=== PATIENT | female | born 2000 | race Caucasian/White ===

== ENCOUNTER 2023-01-17 09:54 | Emergency (ER) | payer OTHER ==
--- OUTSIDE RECORDS SUMMARY | 2023-01-17 10:09 | XMS REPORT | Continuity of Care Document ---
:2000 Author Organization [facility] t Address [address] [place] [address] Care Team Providers Name Role Phone Pcp, Patient Does Not Have A Primary Care Physician [phone] QING MORRIS Attending Clinician Unavailable Arturo FLOOR SERVICE WORKER SPRING, Qing Attending Clinician Visit/Fp, [facility] Nurse Attending Clinician Unavailable ABIGAIL TEJADA Attending Clinician Unavailable Mallory DYE, Abigail Garcia Attending Clinician Cherry Zarate RN Attending Clinician Unavailable LISA QUEZADA Attending Clinician Unavailable LISA QUEZADA Attending Clinician Unavailable Thalia Melvin Attending Clinician Shilpa Tripp MD Attending Clinician GILDA HARRIS Attending Clinician Unavailable Nurse, [facility] Adult Urgent Attending Clinician Unavailable Unknown, Attending Attending Clinician Unavailable Gilda Bazan Attending Clinician SHILPA TRIPP Attending Clinician Unavailable Manan Armstrong PA-C Attending Clinician MANAN ARMSTRONG Attending Clinician Unavailable Doctor Unassigned, [place] Attending Clinician Unavailable Paresh Hamm Attending Clinician Unavailable Paresh Hamm Attending Clinician [phone] LONG JUSTICE Attending Clinician Unavailable LONG JUSTICE Attending Clinician Unavailable Pgy1 Attending Clinician Unavailable Ab Joy MD Attending Clinician AB JOY Attending Clinician Unavailable TRACEY FRANCOIS II Attending Clinician Unavailable Dylon iGron MD Attending Clinician Madison Lora MD Attending Clinician Alessandro SANDVOAL MD, Michael James Attending Clinician [phone] Mattie DYE, Gavino Attending Clinician MICHAEL LUGO Attending Clinician Unavailable AMANDA EDUARDO Attending Clinician Unavailable Amanda Valladares Attending Clinician MARIO KENNY Attending Clinician Unavailable Mario Rasheed Attending Clinician KASSY RODRIGUEZ Attending Clinician Unavailable [place] Attending Clinician Betzaida Hernandez RN Attending Clinician Unavailable Pcp, Patient Does Not Have A Attending Clinician [phone] GABRIEL SU Attending Clinician Unavailable Gabriel Su APN Attending Clinician SHILPA BEY Attending Clinician Unavailable Shilpa Bey DO Attending Clinician HEIDI MICHAUD A Attending Clinician Unavailable Addi DYE, Heidi A Attending Clinician Sarahi Farias Attending Clinician Unavailable VARSHA FELICIANO Attending Clinician Unavailable Laron MASON, Jennifer Attending Clinician Varsha Feliciano MD Attending Clinician Michael MASON, Manan Attending Clinician MANAN PAYTON Attending Clinician Unavailable Maggie Feldman Attending Clinician Unavailable ANGEL LUIS LAIRD Attending Clinician Unavailable Halie MILES, Leonel Vargas Attending Clinician Unavailable ANNEL ALVAREZ Attending Clinician Unavailable Kain DYE, Annel F Attending Clinician JUAN RAMOS Attending Clinician Unavailable Dominik Negrete MD Attending Clinician Henry Santoro DO Attending Clinician Kena Meneses Attending Clinician Unavailable Kena Meneses Attending Clinician [phone] GAVINO PHELPS Attending Clinician Unavailable Elida García Attending Clinician Unavailable Elida García Attending Clinician [phone] Only, Pcp Test Attending Clinician Unavailable Miguel García MD Attending Clinician Aleena Garcia PA-C Attending Clinician ALEENA GARCIA Attending Clinician Unavailable Moira Murphy MD Attending Clinician Tresa Boston MD Attending Clinician Nurse, Aramis Pcp [facility] Attending Clinician Unavail able Glendy Gibbons MD Attending Clinician Chasidy MILES, Afia Yi Attending Clinician Unavailable Angel Cortez Attending Clinician Unavailable Mica Dill MD Attending Clinician [phone] Willy Dupree Attending Clinician [phone] KIERSTEN BEAULIEU Attending Clinician Unavailable Devaughn Quezada Attending Clinician Unavailable Devaughn Quezada Attending Clinician [phone] Genet Celis Attending Clinician Unavailable Angel Cortez Attending Clinician [phone] Alix Cadet Attending Clinician Unavailable Kristopher Lazaro Attending Clinician Unavailable MICHAEL BASURTO Attending Clinician Unavailable KRYSTIAN LR Attending Clinician Unavailable AMBERLY KHAN Attending Clinician Unavailable MEREDITH HESS Attending Clinician Unavailable MOIRA MURPHY Attending Clinician Unavailable DARCI PETERSON Attending Clinician Unavailable DARCI PETERSON Attending Clinician Unavailable KELSEA HANCOCK Attending Clinician Unavailable JOAQUÍN DELEON Attending Clinician Unavailable MARIA ALEJANDRA DOUGLAS Attending Clinician Unavailable ENRIKE SAAVEDRA Attending Clinician Unavailable NAIF SHAW Attending Clinician Unavailable LISA QUEZADA Admitting Clinician Unavailable SHILPA TRIPP Admitting Clinician Unavailable LONG JUSTICE Admitting Clinician Unavailable MADISON LORA Admitting Clinician Unavailable Madison Lora MD Admitting Clinician GABRIEL SU Admitting Clinician Unavailable SHILPA BEY Admitting Clinician Unavailable Physician, No Primary or Family Admitting Clinician UnavailANNEL Marie Admitting Clinician Unavailable KIERSTEN BEAULIEU Admitting Clinician Unavailable EMERGENCY ROOM, EMERGENCY Admitting Clinician Unavailable ENRIKE SAAVEDRA Admitting Clinician Unavailable Payers Payer Name Policy Type Policy Number Effective Date Expiration Date S ource [place]ICAID [place] [id number] 2020 00:00:00 [place] [id number] 2020 WOMEN 00:00:00 REPLACED BY [facility] [id number] 2021 CHOICE [place] STAR 00:00:00 SAMMY [id number] 4492-03-21 00:00:00 Problems Condition Condition Condition Status Onset Resolution Last Treating Co mments Source Name Details Category Date Date Treatment Clinician Date Pyelonephr Pyelonephr Disease Active U nivers itis itis 8-18 ity of 00:00: [place] [address] Medical Branch History of History of Disease Active U nivers UTI UTI 8-18 ity of 00:00: [place] [address] Medical Branch Bacteriuri Bacteriuri Disease Active U christie a a 8-18 ity of 00:00: Medical Branch Prediabete Prediabete Disease Active U christie s s 2-14 ity of 00:00: Medical Branch Morbid Morbid Disease Active Univers obesity obesity 3-27 it[place] of [place] mass index 00 Me dical of 50 or of 50 or Branch higher higher Examinatio Examinatio Disease Active Overview : Univers n of n of 3-22 Formattin ity of participan participan 00:00: g of this [place] t in t in 00 note is Medical clinical clinical different [facility] trial-Indo trial-Indo from the inder inder original. Subject has been enrolled in the Pharmacok inetic and Pharmacog enomic Approach to Indometha inder Therapy in study (IRB#[id number]) under Yvan Lambert, and Yovanny myers. Subjects are included if prescribe d indometha inder for PTL or short cervix. This is an observati onal 6-hour PK study. Delivery specimens of cord blood are required if the patient s last dose of indometha inder was less than 48 hrs ago. Contact [email or web address] or [phone] for more informati on. History of History of Disease Active 2015-09 Overview : Univers marijuana marijuana 0-12 Formattin i ty of use use 00:00: g of this note Medical might be Branch different from the original. Stopped 10/2015 Former Former Disease Active 2015-09 Overview: Univer s smoker smoker 0-12 Formattin ity of 00:00: g of this note Medical might be Branch different from the original. Stopped with 05/2016 Psychiatri Psychiatri Disease Active 2015-09 Overview : Univers c c 0-12 Formattin ity of diagnosis diagnosis 00:00: g of this [place] 00 note Medical might be Branch different from the original. Under the care of psychiatr y for OCD, MDD, PTSD, VALERI, panic disorder with agoraphob ia and insomnia. Encourage d to continue visits during due to pt's self discontin uation of Elavil and Prozac; Denies SI/HI on 10/7/16. Rubella Rubella Disease Active 2015-09 Univers non-immune non-immune 0-11 it y of status, status, 00:00: [place] antepartum antepartum 00 Me dical Branch Maternal Maternal Disease Active 2015-09 Unive rs varicella, varicella, 0-11 it y of non-immune [place]-immune [place] Decreased Decreased Disease Active Uni vers range of range of 3-31 ity of motion of motion of 00:[place] interverte interverte 00 Me dical bral discs bral discs Br anch of of cervical cervical spine spine Muscle Muscle Disease Active Univers spasms of spasms of 3-31 ity of head or head or 00:00: [place] neck neck 00 Medical Branch Frequent Frequent Disease Active Unive rs headaches headaches 3-31 ity of 00:00: [place] Medical Branch Pain in Pain in Disease Active Univers lateral lateral 3-31 ity of left upper left upper 00:[place] extremity extremity 00 Medi aicha Branch Radicular Radicular Disease Active Uni vers pain in pain in 3-31 ity of left arm left arm 00:00: [place] 00 Medical Branch PID PID Disease Active Univers (pelvic (pelvic ity of inflammato inflammato [place] ry [place] Medical disease) disease) Branch Allergies, Adverse Reactions, Alerts Allergy Allergy Status Severity Reaction(s) Onset Inactive Treating Comm ents Source Name Type Date Date Clinician No Known DA Active U 2020-09 [facility] 2[facility]23 [place] [facility] NO KNOWN Drug Active Univers ALLERGIE Class ity of S [place] [facility] Family History Family Member Diagnosis Comments Start Date Stop Date Source Father Heart disease 2013-02-14 2013-02-14 [facility] Mother Family history of 2013-02-14 2013-02-14 [facility] manic-depressive 00:00:00 00:00:00 and [facility] Social History Social Habit Start Date Stop Date Quantity Comments Source Health-related 2022-09-10 [facility] Behavior 00:00:00 and Well[facility] History of 2022-09-07 Heavy cigarette [facility] ealt tobacco use 00:00:00 smoker (20-39 and [facility] cigs/day) History [facility] University o f Alcohol Frequency [place] M edical Branch History [facility] University o f Alcohol Std [place] Medical Drinks Branch History [facility] o f Alcohol Binge [place] Medic al Branch Alcohol intake [facility] Sex Assigned At Female [facility] ealt and Wellness Exposure to 2022-12-11 2022-12-21 Not sure University SARS-CoV-2 00:00:00 09:04:00 [facility] [place] [facility] (event) Branch Tobacco use and 2022-05-05 2022-05-05 Smokeless tobacco Un iversity of exposure 00:00:00 00:00:00 non-user [facility] [place] [facility] Alcohol Comment 2020-07-31 2020-07-31 socialy Universit y of 00:00:00 00:00:00 [facility] [place] [facility] Smoking Status Start Date Stop Date Source Unknown if ever smoked [facility] ealt and Wellness Smokes tobacco daily 2022-05-05 00:00:00 Univers ity of [facility] [place] [facility] Medications Ordered Filled Start Stop Current Ordering Indication Dosage Frequency Signature Comments Components Source Medication Medication Date Date Medication? Clinician (SIG) Name Name iopamidol 2022- No [id number] 80mL 80 mL, U nivers (ISOVUE 12-07 Intravenou ity o f 370-500 mL) 16:00: 14:59 s, ONCE, 1 [place] injection 00 :00 dose, On Medica l 80 mL Wed Branch 12/07/22 at 1100, Routine methocarbam 2022- No 1000mg 1,000 mg, Univers oL 12-07 Oral, ity of (ROBAXIN) 03:15: 03:07 ONCE, 1 [place] tablet 00 :00 dose, On Medical 1,000 mg Tue Branch 12/06/22 at 2215, Routine ibuprofen 2022- No 800mg 800 mg, Uni vers (IBU) 12-07 Oral, ity of tablet 800 02:15: 03:07 ONCE, 1 [place] as mg 00 :00 dose, On Medical Tue Branch 12/06/22 at 2115, SAMMY ibuprofen Yes [id number] 600mg Take 1 U nivers 600 mg 12-07 tablet by ity of tablet 00:00: mouth [place] 00 every 6 Medical (six) Branch hours as needed for Pain (scale 4-6) for up to 12 doses. cyclobenzap 2023-0 Yes [id number] 10mg Take 1 Univers rine 10 mg 3-22 tablet by ity of tablet 00:00: mouth in [place] 00 the Medical morning Branch and 1 tablet at noon and 1 tablet in the evening. ibuprofen 2023-0 Yes [id number] 600mg Take 1 U nivers 600 mg 3-22 tablet by ity of tablet 00:00: mouth [place] 00 every 6 Medical (six) Branch hours as needed for Pain (scale 4-6) for up to 12 doses. cyclobenzap 2023-0 Yes [id number] 10mg Take 1 Univers rine 10 mg 3-22 tablet by ity of tablet 00:00: mouth in [place] 00 the Medical morning Branch and 1 tablet at noon and 1 tablet in the evening. ibuprofen 2023-0 Yes [id number] 600mg Take 1 U nivers 600 mg 3-22 tablet by ity of tablet 00:00: mouth [place] 00 every 6 Medical (six) Branch hours as needed for Pain (scale 4-6) for up to 12 doses. cyclobenzap 2023-0 Yes [id number] 10mg Take 1 Univers rine 10 mg 3-22 tablet by ity of tablet 00:00: mouth in [place] 00 the Medical morning Branch and 1 tablet at noon and 1 tablet in the evening. ibuprofen 2023-0 Yes [id number] 600mg Take 1 U nivers 600 mg 3-22 tablet by ity of tablet 00:00: mouth [place] 00 every 6 Medical (six) Branch hours as needed for Pain (scale 4-6) for up to 12 doses. cyclobenzap 2023-0 Yes [id number] 10mg Take 1 Univers rine 10 mg 3-22 tablet by ity of tablet 00:00: mouth in [place] 00 the Medical morning Branch and 1 tablet at noon and 1 tablet in the evening. ibuprofen 2023-0 Yes [id number] 600mg Take 1 U nivers 600 mg 3-22 tablet by ity of tablet 00:00: mouth [place] 00 every 6 Medical (six) Branch hours as needed for Pain (scale 4-6) for up to 12 doses. cyclobenzap 2023-0 Yes [id number] 10mg Take 1 Univers rine 10 mg 3-22 tablet by ity of tablet 00:00: mouth in [place] 00 the Medical morning Branch and 1 tablet at noon and 1 tablet in the evening. ibuprofen Yes [id number] 600mg Take 1 U nivers 600 mg 3-22 tablet by ity of tablet 00:00: mouth [place] 00 every 6 Medical (six) Branch hours as needed for Pain (scale 4-6) for up to 12 doses. cyclobenzap Yes [id number] 10mg Take 1 Univers rine 10 mg - tablet by ity of tablet 00:00: mouth in [place] [address] [facility] Branch and 1 tablet at noon and 1 tablet in the evening. iopamidol 2022- No [id number] 80mL 80 mL, U nivers (ISOVUE 12-04 Intravenou ity o f 370-500 mL) 05:00: 05:00 s, ONCE, 1 [place] injection 00 :00 dose, On Medica l 80 mL [place] Branch 12/04/22 at 0000, Routine amoxicillin 2022- Yes [id number] 875mg Take 1 Univers 875 mg 11-18 tablet by ity of tablet 00:00: 05:59 mouth in [place] 00 :[address] [facility] and 1 tablet in the evening. Do all this for 7 days. amoxicillin 2022- Yes [id number] 875mg Take 1 Univers 875 mg 11-18 tablet by ity of tablet 00:00: 05:59 mouth in [place] 00 :[address] [facility] and 1 tablet in the evening. Do all this for 7 days. amoxicillin 2022- Yes [id number] 875mg Take 1 Univers 875 mg 11-18 tablet by ity of tablet 00:00: 05:59 mouth in [place] 00 :[address] [facility] and 1 tablet in the evening. Do all this for 7 days. traMADoL 2021-09- No 50mg 50 mg, Univer s (ULTRAM) 09-20 Oral, ity of tablet 50 14:30: 13:42 ONCE, 1 [place] mg 00 :00 dose, On Medical Sand[place] Branch 07/21/22 at 0930, SAMMY aspirin 2021-09 Yes 324mg 324 mg, Univer s chewable 1-03 Oral, ity of tablet 324 14:00: DAILY, [place] mg 00 First dose Medical on Sandi Branch 07/21/22 at 0900, Until Discontinu ed, Routine ketorolac 2021-09 30mg 30 mg, Unive rs (TORADOL) 09-20 Slow IV ity of injection 13:15: 12:25 Push, [place] 30 mg 00 :00 ONCE, 1 Medical dose, On Branch Sandi 07/21/22 at 0815, Routine traMADoL 50 2021-09 Yes [id number] 50mg Take 1 Univ ers mg tablet 1-03 tablet by ity o f 00:00: mouth [place] 00 every 6 Medical (six) Branch hours as needed for Pain (scale 4-6) for up to 10 doses. Indication s: acute pain traMADoL 50 2021-09 Yes [id number] 50mg Take 1 Univ ers mg tablet 1-03 tablet by ity o f 00:00: mouth [place] 00 every 6 Medical (six) Branch hours as needed for Pain (scale 4-6) for up to 10 doses. Indication s: acute pain traMADoL 50 2021-09 Yes [id number] 50mg Take 1 Univ ers mg tablet 1-03 tablet by ity o f 00:00: mouth [place] 00 every 6 Medical (six) Branch hours as needed for Pain (scale 4-6) for up to 10 doses. Indication s: acute pain traMADoL 50 2021-09 Yes [id number] 50mg Take 1 Univ ers mg tablet 1-03 tablet by ity o f 00:00: mouth [place] 00 every 6 Medical (six) Branch hours as needed for Pain (scale 4-6) for up to 10 doses. Indication s: acute pain traMADoL 50 2021-09 Yes [id number] 50mg Take 1 Univ ers mg tablet 1-03 tablet by ity o f 00:00: mouth [place] 00 every 6 Medical (six) Branch hours as needed for Pain (scale 4-6) for up to 10 doses. Indication s: acute pain traMADoL 50 2021-09 Yes [id number] 50mg Take 1 Univ ers mg tablet 1-03 tablet by ity o f 00:00: mouth [place] 00 every 6 Medical (six) Branch hours as needed for Pain (scale 4-6) for up to 10 doses. Indication s: acute pain traMADoL 50 2021-09 Yes [id number] 50mg Take 1 Univ ers mg tablet 1-03 tablet by ity o f 00:00: mouth [place] 00 every 6 Medical (six) Branch hours as needed for Pain (scale 4-6) for up to 10 doses. Indication s: acute pain traMADoL 50 2021-09 Yes [id number] 50mg Take 1 Univ ers mg tablet 1-03 tablet by ity o f 00:00: mouth [place] 00 every 6 Medical (six) Branch hours as needed for Pain (scale 4-6) for up to 10 doses. Indication s: acute pain traMADoL 50 2021-09 Yes [id number] 50mg Take 1 Univ ers mg tablet 1-03 tablet by ity o f 00:00: mouth [place] 00 every 6 Medical (six) Branch hours as needed for Pain (scale 4-6) for up to 10 doses. Indication s: acute pain traMADoL 50 2021-09 Yes [id number] 50mg Take 1 Univ ers mg tablet 1-03 tablet by ity o f 00:00: mouth [place] 00 every 6 Medical (six) Branch hours as needed for Pain (scale 4-6) for up to 10 doses. Indication s: acute pain traMADoL 50 2021-09 Yes [id number] 50mg Take 1 Univ ers mg tablet 1-03 tablet by ity o f 00:00: mouth [place] 00 every 6 Medical (six) Branch hours as needed for Pain (scale 4-6) for up to 10 doses. Indication s: acute pain traMADoL 50 2021-09 Yes [id number] 50mg Take 1 Univ ers mg tablet 1-03 tablet by ity o f 00:00: mouth [place] 00 every 6 Medical (six) Branch hours as needed for Pain (scale 4-6) for up to 10 doses. Indication s: acute pain traMADoL 50 2021-09 Yes [id number] 50mg Take 1 Univ ers mg tablet 1-03 tablet by ity o f 00:00: mouth [place] 00 every 6 Medical (six) Branch hours as needed for Pain (scale 4-6) for up to 10 doses. Indication s: acute pain ciprofloxac Yes [id number] 500mg Take 1 Univers in HCl 500 8-20 tablet by ity of mg tablet 00:00: mouth [place] 00 the Medical morning Branch and 1 tablet in the evening. ondansetron Yes [id number] 4mg Take 1 Univers 4 mg tablet 8-20 tablet by ity of 00:00: mouth [place] 00 every 8 Medical (eight) Branch hours as needed for Nausea and Vomiting (N/V). ciprofloxac 2022-0 Yes [id number] 500mg Take 1 Univers in HCl 500 8-20 tablet by ity of mg tablet 00:00: mouth [place] 00 the Medical morning Branch and 1 tablet in the evening. ondansetron 2022-0 Yes [id number] 4mg Take 1 Univers 4 mg tablet 8-20 tablet by ity of 00:00: mouth [place] 00 every 8 Medical (eight) Branch hours as needed for Nausea and Vomiting (N/V). ciprofloxac 2022-0 Yes [id number] 500mg Take 1 Univers in HCl 500 8-20 tablet by ity of mg tablet 00:00: mouth [place] 00 the Medical morning Branch and 1 tablet in the evening. ondansetron 2022-0 Yes [id number] 4mg Take 1 Univers 4 mg tablet 8-20 tablet by ity of 00:00: mouth [place] 00 every 8 Medical (eight) Branch hours as needed for Nausea and Vomiting (N/V). ciprofloxac 2022-0 Yes [id number] 500mg Take 1 Univers in HCl 500 8-20 tablet by ity of mg tablet 00:00: mouth [place] 00 the Medical morning Branch and 1 tablet in the evening. ondansetron 2022-0 Yes [id number] 4mg Take 1 Univers 4 mg tablet 8-20 tablet by ity of 00:00: mouth [place] 00 every 8 Medical (eight) Branch hours as needed for Nausea and Vomiting (N/V). ciprofloxac 2022-0 Yes [id number] 500mg Take 1 Univers in HCl 500 8-20 tablet by ity of mg tablet 00:00: mouth [place] 00 the Medical morning Branch and 1 tablet in the evening. ondansetron 2022-0 Yes [id number] 4mg Take 1 Univers 4 mg tablet 8-20 tablet by ity of 00:00: mouth [place] 00 every 8 Medical (eight) Branch hours as needed for Nausea and Vomiting (N/V). ciprofloxac 2022-0 Yes [id number] 500mg Take 1 Univers in HCl 500 8-20 tablet by ity of mg tablet 00:00: mouth [place] 00 the Medical morning Branch and 1 tablet in the evening. ondansetron 2022-0 Yes [id number] 4mg Take 1 Univers 4 mg tablet 8-20 tablet by ity of 00:00: mouth [place] 00 every 8 Medical (eight) Branch hours as needed for Nausea and Vomiting (N/V). ciprofloxac 2022-0 Yes [id number] 500mg Take 1 Univers in HCl 500 8-20 tablet by ity of mg tablet 00:00: mouth [place] 00 the Medical morning Branch and 1 tablet in the evening. ondansetron 2022-0 Yes [id number] 4mg Take 1 Univers 4 mg tablet 8-20 tablet by ity of 00:00: mouth [place] 00 every 8 Medical (eight) Branch hours as needed for Nausea and Vomiting (N/V). ciprofloxac 2022-0 Yes [id number] 500mg Take 1 Univers in HCl 500 8-20 tablet by ity of mg tablet 00:00: mouth [place] 00 the Medical morning Branch and 1 tablet in the evening. ondansetron 2022-0 Yes [id number] 4mg Take 1 Univers 4 mg tablet 8-20 tablet by ity of 00:00: mouth [place] 00 every 8 Medical (eight) Branch hours as needed for Nausea and Vomiting (N/V). ciprofloxac 2022-0 Yes [id number] 500mg Take 1 Univers in HCl 500 8-20 tablet by ity of mg tablet 00:00: mouth [place] 00 the Medical morning Branch and 1 tablet in the evening. ondansetron 2022-0 Yes [id number] 4mg Take 1 Univers 4 mg tablet 8-20 tablet by ity of 00:00: mouth [place] 00 every 8 Medical (eight) Branch hours as needed for Nausea and Vomiting (N/V). ciprofloxac 2022-0 Yes [id number] 500mg Take 1 Univers in HCl 500 8-20 tablet by ity of mg tablet 00:00: mouth [place] 00 the Medical morning Branch and 1 tablet in the evening. ondansetron 2022-0 Yes [id number] 4mg Take 1 Univers 4 mg tablet 8-20 tablet by ity of 00:00: mouth [place] 00 every 8 Medical (eight) Branch hours as needed for Nausea and Vomiting (N/V). ciprofloxac 2022-0 Yes [id number] 500mg Take 1 Univers in HCl 500 8-20 tablet by ity of mg tablet 00:00: mouth [place] 00 the Medical morning Branch and 1 tablet in the evening. ondansetron 2022-0 Yes [id number] 4mg Take 1 Univers 4 mg tablet 8-20 tablet by ity of 00:00: mouth [place] 00 every 8 Medical (eight) Branch hours as needed for Nausea and Vomiting (N/V). ciprofloxac 2022-0 Yes [id number] 500mg Take 1 Univers in HCl 500 8-20 tablet by ity of mg tablet 00:00: mouth [place] 00 the Medical morning Branch and 1 tablet in the evening. ondansetron 2022-0 Yes [id number] 4mg Take 1 Univers 4 mg tablet 8-20 tablet by ity of 00:00: mouth [place] 00 every 8 Medical (eight) Branch hours as needed for Nausea and Vomiting (N/V). ciprofloxac 2022-0 Yes [id number] 500mg Take 1 Univers in HCl 500 8-20 tablet by ity of mg tablet 00:00: mouth [place] 00 the Medical morning Branch and 1 tablet in the evening. ondansetron 2022-0 Yes [id number] 4mg Take 1 Univers 4 mg tablet 8-20 tablet by ity of 00:00: mouth [place] 00 every 8 Medical (eight) Branch hours as needed for Nausea and Vomiting (N/V). ciprofloxac 2022-0 Yes [id number] 500mg Take 1 Univers in HCl 500 8-20 tablet by ity of mg tablet 00:00: mouth [place] 00 the Medical morning Branch and 1 tablet in the evening. ondansetron 2022-0 Yes [id number] 4mg Take 1 Univers 4 mg tablet 8-20 tablet by ity of 00:00: mouth [place] 00 every 8 Medical (eight) Branch hours as needed for Nausea and Vomiting (N/V). ciprofloxac 2022-0 Yes [id number] 500mg Take 1 Univers in HCl 500 8-20 tablet by ity of mg tablet 00:00: mouth [place] 00 the Medical morning Branch and 1 tablet in the evening. ondansetron 2022-0 Yes [id number] 4mg Take 1 Univers 4 mg tablet 8-20 tablet by ity of 00:00: mouth [place] 00 every 8 Medical (eight) Branch hours as needed for Nausea and Vomiting (N/V). ciprofloxac 2022-0 Yes [id number] 500mg Take 1 Univers in HCl 500 8-20 tablet by ity of mg tablet 00:00: mouth [place] 00 the Medical morning Branch and 1 tablet in the evening. ondansetron 2022-0 Yes [id number] 4mg Take 1 Univers 4 mg tablet 8-20 tablet by ity of 00:00: mouth [place] 00 every 8 Medical (eight) Branch hours as needed for Nausea and Vomiting (N/V). ciprofloxac 2022-0 Yes [id number] 500mg Take 1 Univers in HCl 500 8-20 tablet by [facility] mg tablet 00:00: mouth [place] 00 the Medical morning Branch and 1 tablet in the evening. ondansetron 2022-0 Yes [id number] 4mg Take 1 [facility] 4 mg tablet 8-20 tablet by [facility] of 00:00: mouth [place] 00 every 8 Medical (eight) Branch hours as needed for Nausea and Vomiting (N/V). methocarbam 2022-0 Yes [id number] 500mg Take 1 [facility] oL 500 mg 7-18 tablet by [facility] o f tablet 00:00: mouth (four) Medical times Branch daily as needed for Pain (scale 1-3). ibuprofen 2022-0 Yes [id number] 600mg Take 1 [facility] 600 mg 7-18 tablet by [facility] tablet 00:00: mouth [place] 00 every 6 Medical (six) Branch hours as needed for Pain (scale 1-3). methocarbam 2022-0 Yes [id number] 500mg Take 1 [facility] oL 500 mg 7-18 tablet by [facility] o f tablet 00:00: mouth 00 (four) Medical times Branch daily as needed for Pain (scale 1-3). ibuprofen 2022-0 Yes [id number] 600mg Take 1 [facility] 600 mg 7-18 tablet by [facility] tablet 00:00: mouth [place] 00 every 6 Medical (six) Branch hours as needed for Pain (scale 1-3). methocarbam 2022-0 Yes [id number] 500mg Take 1 [facility] oL 500 mg 7-18 tablet by [facility] o f tablet 00:00: mouth 4 00 (four) Medical times Branch daily as needed for Pain (scale 1-3). ibuprofen 2022-0 Yes [id number] 600mg Take 1 [facility] 600 mg 7-18 tablet by [facility] tablet 00:00: mouth [place] 00 every 6 Medical (six) Branch hours as needed for Pain (scale 1-3). methocarbam 2022-0 Yes [id number] 500mg Take 1 [facility] oL 500 mg 7-18 tablet by [facility] o f tablet 00:00: mouth (four) Medical times Branch daily as needed for Pain (scale 1-3). ibuprofen 2022-0 Yes [id number] 600mg Take 1 [facility] 600 mg 7-18 tablet by [facility] tablet 00:00: mouth [place] 00 every 6 Medical (six) Branch hours as needed for Pain (scale 1-3). methocarbam 2022-0 Yes [id number] 500mg Take 1 [facility] oL 500 mg 7-18 tablet by [facility] o f tablet 00:00: mouth (four) Medical times Branch daily as needed for Pain (scale 1-3). ibuprofen 2022-0 Yes [id number] 600mg Take 1 [facility] 600 mg 7-18 tablet by [facility] tablet 00:00: mouth [place] 00 every 6 Medical (six) Branch hours as needed for Pain (scale 1-3). methocarbam 2022-0 Yes [id number] 500mg Take 1 [facility] oL 500 mg 7-18 tablet by [facility] o f tablet 00:00: mouth (four) Medical times Branch daily as needed for Pain (scale 1-3). ibuprofen 2022-0 Yes [id number] 600mg Take 1 [facility] 600 mg 7-18 tablet by [facility] tablet 00:00: mouth [place] 00 every 6 Medical (six) Branch hours as needed for Pain (scale 1-3). methocarbam 2022-0 Yes [id number] 500mg Take 1 [facility] oL 500 mg 7-18 tablet by [facility] o f tablet 00:00: mouth (four) Medical times Branch daily as needed for Pain (scale 1-3). ibuprofen 2022-0 Yes [id number] 600mg Take 1 [facility] 600 mg 7-18 tablet by [facility] tablet 00:00: mouth [place] 00 every 6 Medical (six) Branch hours as needed for Pain (scale 1-3). methocarbam 2022-0 Yes [id number] 500mg Take 1 [facility] oL 500 mg 7-18 tablet by [facility] o f tablet 00:00: mouth (four) Medical times Branch daily as needed for Pain (scale 1-3). ibuprofen 2022-0 Yes [id number] 600mg Take 1 [facility] 600 mg 7-18 tablet by [facility] tablet 00:00: mouth [place] 00 every 6 Medical (six) Branch hours as needed for Pain (scale 1-3). methocarbam 2022-0 Yes [id number] 500mg Take 1 [facility] oL 500 mg 7-18 tablet by [facility] o f tablet 00:00: mouth (four) Medical times Branch daily as needed for Pain (scale 1-3). ibuprofen 2022-0 Yes [id number] 600mg Take 1 [facility] 600 mg 7-18 tablet by [facility] tablet 00:00: mouth [place] 00 every 6 Medical (six) Branch hours as needed for Pain (scale 1-3). methocarbam 2022-0 Yes [id number] 500mg Take 1 [facility] oL 500 mg 7-18 tablet by [facility] o f tablet 00:00: mouth (four) Medical times Branch daily as needed for Pain (scale 1-3). ibuprofen 2022-0 Yes [id number] 600mg Take 1 [facility] 600 mg 7-18 tablet by [facility] tablet 00:00: mouth [place] 00 every 6 Medical (six) Branch hours as needed for Pain (scale 1-3). methocarbam 2022-0 Yes [id number] 500mg Take 1 [facility] oL 500 mg 7-18 tablet by [facility] o f tablet 00:00: mouth (four) Medical times Branch daily as needed for Pain (scale 1-3). ibuprofen 2022-0 Yes [id number] 600mg Take 1 [facility] 600 mg 7-18 tablet by [facility] tablet 00:00: mouth [place] 00 every 6 Medical (six) Branch hours as needed for Pain (scale 1-3). methocarbam 2022-0 Yes [id number] 500mg Take 1 [facility] oL 500 mg 7-18 tablet by [facility] o f tablet 00:00: mouth (four) Medical times Branch daily as needed for Pain (scale 1-3). methocarbam 2022-0 Yes [id number] 500mg Take 1 [facility] oL 500 mg 7-18 tablet by [facility] o f tablet 00:00: mouth (four) Medical times Branch daily as needed for Pain (scale 1-3). methocarbam 2022-0 Yes [id number] 500mg Take 1 [facility] oL 500 mg 7-18 tablet by [facility] o f tablet 00:00: mouth (four) Medical times Branch daily as needed for Pain (scale 1-3). methocarbam 2021-0 Yes [id number] 500mg Take 1 [facility] oL 500 mg 7-18 tablet by [facility] o f tablet 00:00: mouth (four) Medical times Branch daily as needed for Pain (scale 1-3). methocarbam 2-0 Yes [id number] 500mg Take 1 [facility] oL 500 mg 7-18 tablet by [facility] o f tablet 00:00: mouth (four) Medical times Branch daily as needed for Pain (scale 1-3). methocarbam 2021-0 Yes [id number] 500mg Take 1 [facility] oL 500 mg 7-18 tablet by [facility] o f tablet 00:00: mouth (four) Medical times Branch daily as needed for Pain (scale 1-3). ibuprofen 2021-0 2023- No [id number] 600mg Take 1 [facility] 600 mg 7-18 03-22 tablet by [facility] tablet 00:00: 00:00 mouth [place] 00 :00 every 6 Medical (six) Branch hours as needed for Pain (scale 1-3). ibuprofen 2021-0 Yes [id number] 800mg Take 1 [facility] 800 mg 6-20 tablet by [facility] tablet 00:00: mouth [place] 00 every 8 Medical (eight) Branch hours as needed for Pain (scale 4-6). cyclobenzap 2021-0 Yes [id number] 10mg Take 1 [facility] rine 10 mg 6-20 tablet by [facility] tablet 00:00: mouth 3 (three) Medical times Branch daily as needed for Muscle Spasms. ibuprofen 2-0 Yes [id number] 800mg Take 1 [facility] 800 mg 6-20 tablet by [facility] tablet 00:00: mouth [place] 00 every 8 Medical (eight) Branch hours as needed for Pain (scale 4-6). cyclobenzap 2022-0 Yes [id number] 10mg Take 1 [facility] rine 10 mg 6-20 tablet by [facility] tablet 00:00: mouth 3 [place] 00 (three) Medical times Branch daily as needed for Muscle Spasms. ibuprofen 2-0 Yes [id number] 800mg Take 1 [facility] 800 mg 6-20 tablet by [facility] tablet 00:00: mouth [place] 00 every 8 Medical (eight) Branch hours as needed for Pain (scale 4-6). cyclobenzap 2021-0 Yes [id number] 10mg Take 1 [facility] rine 10 mg 6-20 tablet by [facility] tablet 00:00: mouth 3 [place] 00 (three) Medical times Branch daily as needed for Muscle Spasms. ibuprofen 2021-0 Yes [id number] 800mg Take 1 [facility] 800 mg 6-20 tablet by [facility] tablet 00:00: mouth [place] 00 every 8 Medical (eight) Branch hours as needed for Pain (scale 4-6). cyclobenzap 2021-0 Yes [id number] 10mg Take 1 [facility] rine 10 mg 6-20 tablet by [facility] tablet 00:00: mouth 3 00 (three) Medical times Branch daily as needed for Muscle Spasms. ibuprofen 2021-0 Yes [id number] 800mg Take 1 [facility] 800 mg 6-20 tablet by [facility] tablet 00:00: mouth [place] 00 every 8 Medical (eight) Branch hours as needed for Pain (scale 4-6). cyclobenzap 2021-0 Yes [id number] 10mg Take 1 [facility] rine 10 mg 6-20 tablet by [facility] tablet 00:00: mouth 3 00 (three) Medical times Branch daily as needed for Muscle Spasms. ibuprofen 2021-0 Yes [id number] 800mg Take 1 [facility] 800 mg 6-20 tablet by [facility] tablet 00:00: mouth [place] 00 every 8 Medical (eight) Branch hours as needed for Pain (scale 4-6). cyclobenzap 2022-0 Yes [id number] 10mg Take 1 [facility] rine 10 mg 6-20 tablet by [facility] tablet 00:00: mouth 3 [place] 00 (three) Medical times Branch daily as needed for Muscle Spasms. ibuprofen 2022-0 Yes [id number] 800mg Take 1 [facility] 800 mg 6-20 tablet by [facility] tablet 00:00: mouth [place] 00 every 8 Medical (eight) Branch hours as needed for Pain (scale 4-6). cyclobenzap 2-0 Yes [id number] 10mg Take 1 [facility] rine 10 mg 6-20 tablet by [facility] tablet 00:00: mouth 3 [place] 00 (three) Medical times Branch daily as needed for Muscle Spasms. ibuprofen 2021-0 Yes [id number] 800mg Take 1 [facility] 800 mg 6-20 tablet by [facility] tablet 00:00: mouth [place] 00 every 8 Medical (eight) Branch hours as needed for Pain (scale 4-6). cyclobenzap 2021-0 Yes [id number] 10mg Take 1 [facility] rine 10 mg 6-20 tablet by [facility] tablet 00:00: mouth 3 [place] 00 (three) Medical times Branch daily as needed for Muscle Spasms. ibuprofen 2021-0 Yes [id number] 800mg Take 1 [facility] 800 mg 6-20 tablet by [facility] tablet 00:00: mouth [place] 00 every 8 Medical (eight) Branch hours as needed for Pain (scale 4-6). cyclobenzap 2021-0 Yes [id number] 10mg Take 1 [facility] rine 10 mg 6-20 tablet by [facility] of tablet 00:00: mouth 3 [place] 00 (three) Medical times Branch daily as needed for Muscle Spasms. ibuprofen 2021-0 Yes [id number] 800mg Take 1 [facility] 800 mg 6-20 tablet by [facility] of tablet 00:00: mouth [place] 00 every 8 Medical (eight) Branch hours as needed for Pain (scale 4-6). cyclobenzap 2021-0 Yes [id number] 10mg Take 1 [facility] rine 10 mg 6-20 tablet by [facility] of tablet 00:00: mouth 3 00 (three) Medical times Branch daily as needed for Muscle Spasms. ibuprofen 2021-0 Yes [id number] 800mg Take 1 [facility] 800 mg 6-20 tablet by [facility] of tablet 00:00: mouth [place] 00 every 8 Medical (eight) Branch hours as needed for Pain (scale 4-6). cyclobenzap 2-0 Yes [id number] 10mg Take 1 [facility] rine 10 mg 6-20 tablet by [facility] of tablet 00:00: mouth 3 [place] 00 (three) Medical times Branch daily as needed for Muscle Spasms. ibuprofen 2021-0 2023- No [id number] 800mg Take 1 [facility] 800 mg 6-20 03-22 tablet by [facility] tablet 00:00: 00:00 mouth [place] 00 :00 every 8 Medical (eight) Branch hours as needed for Pain (scale 4-6). cyclobenzap 2023- No [id number] 10mg Take 1 [facility] rine 10 mg 6-20 - tablet by [facility] tablet 00:00: 00:00 mouth 3 [place] 00 :00 (three) Medical times Branch daily as needed for Muscle Spasms. ferrous Yes [id number] 325mg Take 1 [facility] vers sulfate 325 2-14 tablet by [facility] of mg (65 mg 00:00: mouth [place] iron) 00 every Medical tablet other day. Branch nicotine Yes [id number] 4mg Take 1 [facility] polacrilex 2-14 Each by [facility] of 4 mg gum 00:00: mouth as [place] 00 needed for Medical Smoking Branch cessation. ferrous Yes [id number] 325mg Take 1 [facility] vers sulfate 325 2-14 tablet by [facility] of mg (65 mg 00:00: mouth [place] iron) 00 every Medical tablet other day. Branch nicotine 0 Yes [id number] 4mg Take 1 [facility] polacrilex 2-14 Each by [facility] of 4 mg gum 00:00: mouth as [place] 00 needed for Medical Smoking Branch cessation. ferrous Yes [id number] 325mg Take 1 [facility] vers sulfate 325 2-14 tablet by [facility] of mg (65 mg 00:00: mouth [place] iron) 00 every Medical tablet other day. Branch nicotine 0 Yes [id number] 4mg Take 1 [facility] polacrilex 2-14 Each by [facility] of 4 mg gum 00:00: mouth as [place] 00 needed for Medical Smoking Branch cessation. ferrous Yes [id number] 325mg Take 1 [facility] vers sulfate 325 2-14 tablet by [facility] of mg (65 mg 00:00: mouth [place] iron) 00 every Medical tablet other day. Branch nicotine Yes [id number] 4mg Take 1 [facility] polacrilex 2-14 Each by [facility] of 4 mg gum 00:00: mouth as [place] 00 needed for Medical Smoking Branch cessation. ferrous Yes [id number] 325mg Take 1 [facility] vers sulfate 325 2-14 tablet by [facility] of mg (65 mg 00:00: mouth [place] iron) 00 every Medical tablet other day. Branch nicotine 2021-0 Yes [id number] 4mg Take 1 [facility] polacrilex 2-14 Each by [facility] of 4 mg gum 00:00: mouth as [place] 00 needed for Medical Smoking Branch cessation. ferrous 2021-0 Yes [id number] 325mg Take 1 [facility] vers sulfate 325 2-14 tablet by [facility] of mg (65 mg 00:00: mouth [place] iron) 00 every Medical tablet other day. Branch nicotine 2021-0 Yes [id number] 4mg Take 1 [facility] polacrilex 2-14 Each by [facility] of 4 mg gum 00:00: mouth as [place] 00 needed for Medical Smoking Branch cessation. ferrous 2021-0 Yes [id number] 325mg Take 1 [facility] vers sulfate 325 2-14 tablet by [facility] of mg (65 mg 00:00: mouth [place] iron) 00 every Medical tablet other day. Branch nicotine 2021-0 Yes [id number] 4mg Take 1 [facility] polacrilex 2-14 Each by [facility] 4 mg gum 00:00: mouth as [place] 00 needed for Medical Smoking Branch cessation. ferrous 2021-0 Yes [id number] 325mg Take 1 [facility] vers sulfate 325 2-14 tablet by [facility] of mg (65 mg 00:00: mouth [place] iron) 00 every Medical tablet other day. Branch nicotine 2021-0 Yes [id number] 4mg Take 1 [facility] [place] polacrilex 2-14 Each by [facility] 4 mg gum 00:00: mouth as [place] 00 needed for Medical Smoking Branch cessation. ferrous 2021-0 Yes [id number] 325mg Take 1 [facility] vers sulfate 325 2-14 tablet by [facility] of mg (65 mg 00:00: mouth [place] iron) 00 every Medical tablet other day. Branch nicotine 2021-0 Yes [id number] 4mg Take 1 [facility] [place] polacrilex 2-14 Each by [facility] of 4 mg gum 00:00: mouth as [place] 00 needed for Medical Smoking Branch cessation. ferrous 2021-0 Yes [id number] 325mg Take 1 [facility] vers sulfate 325 2-14 tablet by [facility] of mg (65 mg 00:00: mouth [place] iron) 00 every Medical tablet other day. Branch nicotine 2021-0 Yes [id number] 4mg Take 1 [facility] [place] polacrilex 2-14 Each by [facility] of 4 mg gum 00:00: mouth as [place] 00 needed for Medical Smoking Branch cessation. ferrous 2021-0 Yes [id number] 325mg Take 1 [facility] vers sulfate 325 2-14 tablet by [facility] of mg (65 mg 00:00: mouth [place] iron) 00 every Medical tablet other day. Branch nicotine 2021-0 Yes [id number] 4mg Take 1 [facility] [place] polacrilex 2-14 Each by [facility] of 4 mg gum 00:00: mouth as [place] 00 needed for Medical Smoking Branch cessation. ferrous 2021-0 Yes [id number] 325mg Take 1 [facility] vers sulfate 325 2-14 tablet by [facility] of mg (65 mg 00:00: mouth [place] iron) 00 every Medical tablet other day. Branch nicotine 2021-0 Yes [id number] 4mg Take 1 [facility] polacrilex 2-14 Each by [facility] of 4 mg gum 00:00: mouth as [place] 00 needed for Medical Smoking Branch cessation. ferrous 2021-0 Yes [id number] 325mg Take 1 [facility] vers sulfate 325 2-14 tablet by [facility] of mg (65 mg 00:00: mouth [place] iron) 00 every Medical tablet other day. Branch nicotine 2021-0 Yes [id number] 4mg Take 1 [facility] polacrilex 2-14 Each by [facility] 4 mg gum 00:00: mouth as [place] 00 needed for Medical Smoking Branch cessation. ferrous 2021-0 Yes [id number] 325mg Take 1 [facility] vers sulfate 325 2-14 tablet by [facility] of mg (65 mg 00:00: mouth [place] iron) 00 every Medical tablet other day. Branch nicotine 2021-0 Yes [id number] 4mg Take 1 [facility] [place] polacrilex 2-14 Each by [facility] 4 mg gum 00:00: mouth as [place] 00 needed for Medical Smoking Branch cessation. ferrous 2021-0 Yes [id number] 325mg Take 1 [facility] vers sulfate 325 2-14 tablet by [facility] of mg (65 mg 00:00: mouth [place] iron) 00 every Medical tablet other day. Branch nicotine 2021-0 Yes [id number] 4mg Take 1 [facility] polacrilex 2-14 Each by [facility] of 4 mg gum 00:00: mouth as [place] 00 needed for Medical Smoking Branch cessation. ferrous 2021-0 Yes [id number] 325mg Take 1 [facility] vers sulfate 325 2-14 tablet by [facility] of mg (65 mg 00:00: mouth [place] iron) 00 every Medical tablet other day. Branch nicotine Yes [id number] 4mg Take 1 [facility] polacrilex 2-14 Each by [facility] of 4 mg gum 00:00: mouth as [place] 00 needed for Medical Smoking Branch cessation. ferrous Yes [id number] 325mg Take 1 [facility] vers sulfate 325 2-14 tablet by [facility] of mg (65 mg 00:00: mouth [place] iron) 00 every Medical tablet other day. Branch nicotine Yes [id number] 4mg Take 1 [facility] [place] polacrilex 2-14 Each by [facility] of 4 mg gum 00:00: mouth as [place] 00 needed for Medical Smoking Branch cessation. ibuprofen 2020-09 Yes [id number] 600mg Take 1 [facility] 600 mg 1-06 [id number] tablet by [facility] tablet 00:00: mouth [place] 00 every 6 Medical (six) Branch hours as needed for Pain (scale 4-6). ibuprofen 2020-09 Yes [id number] 600mg Take 1 [facility] 600 mg 1-06 [id number] tablet by [facility] tablet 00:00: mouth [place] 00 every 6 Medical (six) Branch hours as needed for Pain (scale 4-6). ibuprofen 2020-09 Yes [id number] 600mg Take 1 [facility] 600 mg 1-06 [id number] tablet by [facility] tablet 00:00: mouth [place] 00 every 6 Medical (six) Branch hours as needed for Pain (scale 4-6). ibuprofen 2020-09 Yes [id number] 600mg Take 1 [facility] 600 mg 1-06 [id number] tablet by [facility] tablet 00:00: mouth [place] 00 every 6 Medical (six) Branch hours as needed for Pain (scale 4-6). ibuprofen 2020-09 Yes [id number] 600mg Take 1 [facility] 600 mg 1-06 [id number] tablet by [facility] tablet 00:00: mouth [place] 00 every 6 Medical (six) Branch hours as needed for Pain (scale 4-6). ibuprofen 2020-09 Yes [id number] 600mg Take 1 [facility] 600 mg 1-06 [id number] tablet by [facility] tablet 00:00: mouth [place] 00 every 6 Medical (six) Branch hours as needed for Pain (scale 4-6). ibuprofen 2020-09 Yes [id number] 600mg Take 1 [facility] 600 mg 1-06 [id number] tablet by [facility] of tablet 00:00: mouth [place] 00 every 6 Medical (six) Branch hours as needed for Pain (scale 4-6). ibuprofen 2020-09 Yes [id number] 600mg Take 1 [facility] 600 mg 1-06 [id number] tablet by [facility] tablet 00:00: mouth [place] 00 every 6 Medical (six) Branch hours as needed for Pain (scale 4-6). ibuprofen 2020-09 Yes [id number] 600mg Take 1 [facility] 600 mg 1-06 [id number] tablet by [facility] of tablet 00:00: mouth [place] 00 every 6 Medical (six) Branch hours as needed for Pain (scale 4-6). ibuprofen 2020-09 Yes [id number] 600mg Take 1 [facility] 600 mg 1-06 [id number] tablet by [facility] of tablet 00:00: mouth [place] 00 every 6 Medical (six) Branch hours as needed for Pain (scale 4-6). ibuprofen 2020-09 Yes [id number] 600mg Take 1 [facility] 600 mg 1-06 [id number] tablet by [facility] tablet 00:00: mouth [place] 00 every 6 Medical (six) Branch hours as needed for Pain (scale 4-6). ibuprofen 2020-093- No [id number] 600mg Take 1 [facility] 600 mg -06 - [id number] tablet by [facility] o f tablet 00:00: 00:00 mouth [place] 00 :00 every 6 Medical (six) Branch hours as needed for Pain (scale 4-6). traZODone 2020-09 Yes TAKE 1 [facility] 100 mg 0-16 TABLET BY [facility] of tablet 00:00: MOUTH AT [place] 00 BEDTIME Medical NEEDED FOR Branch SLEEP ARIPiprazol 2020-09 Yes 5mg Take 5 mg [facility] e 5 mg 0-16 by mouth [facility] of tablet 00:00: every [place] 00 morning. Medical Branch traZODone 2020-09 Yes TAKE 1 [facility] 100 mg 0-16 TABLET BY [facility] tablet 00:00: MOUTH AT [place] 00 BEDTIME Medical NEEDED FOR Branch SLEEP ARIPiprazol 2020-09 Yes 5mg Take 5 mg [facility] e 5 mg 0-16 by mouth [facility] of tablet 00:00: every [place] 00 morning. Medical Branch traZODone 2020-09 Yes TAKE 1 [facility] 100 mg 0-16 TABLET BY [facility] of tablet 00:00: MOUTH AT [place] [address] BEDTIME Medical NEEDED FOR Branch SLEEP ARIPiprazol 2020-09 Yes 5mg Take 5 mg [facility] nivers e 5 mg 0-16 by mouth [facility] of tablet 00:00: every [place] morning. Medical Branch traZODone 2020-09 Yes TAKE 1 [facility] 100 mg 0-16 TABLET BY [facility] of tablet 00:00: MOUTH AT [place] BEDTIME Medical NEEDED FOR Branch SLEEP ARIPiprazol 2020-09 Yes 5mg Take 5 mg [facility] e 5 mg 0-16 by mouth [facility] of tablet 00:00: every [place] [address] morning. Medical Branch traZODone 2020-09 Yes TAKE 1 [facility] 100 mg 0-16 TABLET BY [facility] of tablet 00:00: MOUTH AT [place] [address] BEDTIME Medical NEEDED FOR Branch SLEEP ARIPiprazol 2020-09 Yes 5mg Take 5 mg [facility] e 5 mg 0-16 by mouth [facility] of tablet 00:00: every [place] morning. Medical Branch traZODone 2020-09 Yes TAKE 1 [facility] 100 mg 0-16 TABLET BY [facility] of tablet 00:00: MOUTH AT [place] [address] BEDTIME Medical NEEDED FOR Branch SLEEP ARIPiprazol 2020-09 Yes 5mg Take 5 mg [facility] e 5 mg 0-16 by mouth [facility] of tablet 00:00: every [place] [address] morning. Medical Branch traZODone 2020-09 Yes TAKE 1 [facility] 100 mg 0-16 TABLET BY [facility] of tablet 00:00: MOUTH AT [place] [address] BEDTIME Medical NEEDED FOR Branch SLEEP ARIPiprazol 2020-09 Yes 5mg Take 5 mg [facility] n[facility] e 5 mg 0-16 by mouth [facility] of tablet 00:00: every [place] [address] morning. Medical Branch traZODone 2020-09 Yes TAKE 1 [facility] 100 mg 0-16 TABLET BY [facility] of tablet 00:00: MOUTH AT [place] [address] BEDTIME Medical NEEDED FOR Branch SLEEP ARIPiprazol 2020-09 Yes 5mg Take 5 mg [facility] e 5 mg 0-16 by mouth [facility] of tablet 00:00: every [place] 00 morning. Medical Branch traZODone 2020-09 Yes TAKE 1 [facility] 100 mg 0-16 TABLET BY [facility] of tablet 00:00: MOUTH AT [place] [address] BEDTIME Medical NEEDED FOR Branch SLEEP ARIPiprazol 2020-09 Yes 5mg Take 5 mg [facility] e 5 mg 0-16 by mouth [facility]y of tablet 00:00: every [place] morning. Medical Branch traZODone 2020-09 Yes TAKE 1 [facility] 100 mg 0-16 TABLET BY [facility] of tablet 00:00: MOUTH AT [place] BEDTIME Medical NEEDED FOR Branch SLEEP ARIPiprazol 2020-09 Yes 5mg Take 5 mg [facility] e 5 mg 0-16 by mouth [facility]y of tablet 00:00: every [place] [address] morning. Medical Branch traZODone 2020-09 Yes TAKE 1 [facility] 100 mg 0-16 TABLET BY [facility] of tablet 00:00: MOUTH AT [place] [address] BEDTIME Medical NEEDED FOR Branch SLEEP ARIPiprazol 2020-09 Yes 5mg Take 5 mg [facility] e 5 mg 0-16 by mouth ity of tablet 00:00: every [place] morning. Medical Branch traZODone 2020-09 Yes TAKE 1 [facility] 100 mg 0-16 TABLET BY [facility] of tablet 00:00: MOUTH AT [place] [address] BEDTIME Medical NEEDED FOR Branch SLEEP ARIPiprazol 2020-09 Yes 5mg Take 5 mg [facility] e 5 mg 0-16 by mouth ity of tablet 00:00: every [place] morning. Medical Branch traZODone 2020-09 Yes TAKE 1 [facility] 100 mg 0-16 TABLET BY [facility] of tablet 00:00: MOUTH AT [place] [address] BEDTIME Medical NEEDED FOR Branch SLEEP ARIPiprazol 2020-09 Yes 5mg Take 5 mg [facility] e 5 mg 0-16 by mouth ity of tablet 00:00: every [place] [address] morning. Medical Branch traZODone 2020-09 Yes TAKE 1 [facility] 100 mg 0-16 TABLET BY [facility] of tablet 00:00: MOUTH AT [place] BEDTIME Medical NEEDED FOR Branch SLEEP ARIPiprazol 2020-09 Yes 5mg Take 5 mg [facility] e 5 mg 0-16 by mouth ity of tablet 00:00: every [place] [address] morning. Medical Branch traZODone 2020-09 Yes TAKE 1 [facility] 100 mg 0-16 TABLET BY [facility] of tablet 00:00: MOUTH AT [place] 00 BEDTIME Medical NEEDED FOR Branch SLEEP ARIPiprazol 2020-09 Yes 5mg Take 5 mg [facility] e 5 mg 0-16 by mouth ity of tablet 00:00: every [place] morning. Medical Branch traZODone 2020-09 Yes TAKE 1 [facility] 100 mg 0-16 TABLET BY [facility] of tablet 00:00: MOUTH AT [place] BEDTIME Medical NEEDED FOR Branch SLEEP ARIPiprazol 2020-09 Yes 5mg Take 5 mg [facility] e 5 mg 0-16 by mouth ity of tablet 00:00: every [place] morning. Medical Branch traZODone 2020-09 Yes TAKE 1 [facility] 100 mg 0-16 TABLET BY [facility] of tablet 00:00: MOUTH AT [place] BEDTIME Medical NEEDED FOR Branch SLEEP ARIPiprazol 2020-09 Yes 5mg Take 5 mg [facility] e 5 mg 0-16 by mouth [facility]y of tablet 00:00: every [place] morning. Medical Branch mupirocin 2 No pea size [[facility] % topical 7-28 in each = 0 pct;] He alth ointment 00:00: nostril and 00 BID for 7 [facility] days for s staph colonizati on mupirocin 2 No pea size [[facility] [place] % topical 7-28 in each = 0 pct;] He alth ointment 00:00: nostril and 00 BID for 7 [facility] days for s staph colonizati on trazodone No 1{table Q1D take 1 [[facility] 50 mg 5-26 t} tablet by = 0 pct;] Heal th tablet 13:37: oral route and 00 every day [facility] after s meals Abilify 5 No 1{table Q1D take 1 [[facility] mg tablet 5-26 t} tablet by = 0 pct;] Health 13:37: oral route and 00 every day [facility] trazodone No 1{table Q1D take 1 [[facility] 50 mg 5-26 t} tablet by = 0 pct;] Heal th tablet 13:37: oral route and 00 every day [facility] after s meals Abilify 5 No 1{table Q1D take 1 [[facility] mg tablet 5-26 t} tablet by = 0 pct;] Health 13:37: oral route and 00 every day [facility] trazodone No 1{table Q1D take 1 [[facility] 50 mg 5-26 t} tablet by = 0 pct;] Heal th tablet 13:37: oral route and 00 every day [facility] after s meals Abilify 5 No 1{table Q1D take 1 [[facility] mg tablet 5-26 t} tablet by = 0 pct;] Health 13:37: oral route and 00 every day [facility] trazodone No 1{table Q1D take 1 [[facility] [place] 50 mg 5-26 t} tablet by = 0 pct;] Heal th tablet 13:37: oral route and 00 every day [facility] after s meals Abilify 5 No 1{table Q1D take 1 [[facility] mg tablet 5-26 t} tablet by = 0 pct;] Health 13:37: oral route and 00 every day [facility] Prozac 20 No 1{capsu Q1D take 1 [[facility] mg capsule 5-26 le} capsule by = 0 pct;] Health 13:36: oral route and 00 every day [facility] in the s morning Prozac 20 No 1{capsu Q1D take 1 [[facility] mg capsule 5-26 le} capsule by = 0 pct;] Health 13:36: oral route and 00 every day [facility] in the s morning Prozac 20 No 1{capsu Q1D take 1 [[facility] mg capsule 5-26 le} capsule by = 0 pct;] Health 13:36: oral route and 00 every day [facility] in the s morning Prozac 20 No 1{capsu Q1D take 1 [[facility] mg capsule 5-26 le} capsule by = 0 pct;] Health 13:36: oral route and 00 every day [facility] in the s morning triamcinolo No Q12H apply by [[facility] ne 4-29 topical = 0 pct;] Health acetonide 14:59: route 2 and 0.1 % 00 times [facility] topical every day s cream a thin layer to the affected area(s) triamcinolo 0 No Q12H apply by [[facility] ne 4-29 topical = 0 pct;] Health acetonide 14:59: route 2 and 0.1 % 00 times [facility] topical every day s cream a thin layer to the affected area(s) triamcinolo 0 No Q12H apply by [[facility] ne 4-29 topical = 0 pct;] Health acetonide 14:59: route 2 and 0.1 % 00 times [facility] topical every day s cream a thin layer to the affected area(s) triamcinolo 0 No Q12H apply by [[facility] ne 4-29 topical = 0 pct;] Health acetonide 14:59: route 2 and 0.1 % 00 times [facility] topical every day s cream a thin layer to the affected area(s) triamcinolo No Q12H apply by [[facility] ne 4-29 topical = 0 pct;] Health acetonide 00:00: route 2 and 0.1 % 00 times [facility] topical every day s cream a thin layer to the affected area(s) triamcinolo 0 No Q12H apply by [[facility] ne 4-29 topical = 0 pct;] Health acetonide 00:00: route 2 and 0.1 % 00 times [facility] topical every day s cream a thin layer to the affected area(s) triamcinolo 0 No Q12H apply by [[facility] ne 4-29 topical = 0 pct;] Health acetonide 00:00: route 2 and 0.1 % 00 times [facility] topical every day s cream a thin layer to the affected area(s) triamcinolo 0 No Q12H apply by [[facility] ne 4-29 topical = 0 pct;] Health acetonide 00:00: route 2 and 0.1 % 00 times [facility] topical every day s cream a thin layer to the affected area(s) proMETHazin Yes [id number] 25mg Take 1 [facility] 25 mg 4-15 tablet by [facility]y of tablet 00:00: mouth [place] 00 every 8 Medical (eight) Branch hours as needed for Nausea and Vomiting (N/V). proMETHazin Yes [id number] 25mg Take 1 [facility] 25 mg 4-15 tablet by ity of tablet 00:00: mouth [place] 00 every 8 Medical (eight) Branch hours as needed for Nausea and Vomiting (N/V). proMETHazin 2020-0 Yes [id number] 25mg Take 1 [facility] 25 mg 4-15 tablet by ity of tablet 00:00: mouth [place] 00 every 8 Medical (eight) Branch hours as needed for Nausea and Vomiting (N/V). proMETHazin 2020-0 Yes [id number] 25mg Take 1 [facility] e 25 mg 4-15 tablet by ity of tablet 00:00: mouth [place] 00 every 8 Medical (eight) Branch hours as needed for Nausea and Vomiting (N/V). proMETHazin 2020-0 Yes [id number] 25mg Take 1 [facility] 25 mg 4-15 tablet by ity of tablet 00:00: mouth [place] 00 every 8 Medical (eight) Branch hours as needed for Nausea and Vomiting (N/V). proMETHazin 2020-0 Yes [id number] 25mg Take 1 [facility] 25 mg 4-15 tablet by ity of tablet 00:00: mouth [place] 00 every 8 Medical (eight) Branch hours as needed for Nausea and Vomiting (N/V). proMETHazin 2020-0 Yes [id number] 25mg Take 1 [facility] 25 mg 4-15 tablet by ity of tablet 00:00: mouth [place] 00 every 8 Medical (eight) Branch hours as needed for Nausea and Vomiting (N/V). proMETHazin 2020-0 Yes [id number] 25mg Take 1 [facility] 25 mg 4-15 tablet by ity of tablet 00:00: mouth [place] 00 every 8 Medical (eight) Branch hours as needed for Nausea and Vomiting (N/V). proMETHazin 2020-0 Yes [id number] 25mg Take 1 [facility] 25 mg 4-15 tablet by ity of tablet 00:00: mouth [place] 00 every 8 Medical (eight) Branch hours as needed for Nausea and Vomiting (N/V). proMETHazin 1-0 Yes [id number] 25mg Take 1 [facility] 25 mg 4-15 tablet by ity of tablet 00:00: mouth [place] 00 every 8 Medical (eight) Branch hours as needed for Nausea and Vomiting (N/V). proMETHazin 2020-0 Yes [id number] 25mg Take 1 [facility] 25 mg 4-15 tablet by ity of tablet 00:00: mouth [place] 00 every 8 Medical (eight) Branch hours as needed for Nausea and Vomiting (N/V). proMETHazin 2020-0 Yes [id number] 25mg Take 1 [facility] 25 mg 4-15 tablet by ity of tablet 00:00: mouth [place] 00 every 8 Medical (eight) Branch hours as needed for Nausea and Vomiting (N/V). proMETHazin 0 Yes [id number] 25mg Take 1 [facility] 25 mg 4-15 tablet by ity of tablet 00:00: mouth [place] 00 every 8 Medical (eight) Branch hours as needed for Nausea and Vomiting (N/V). proMETHazin 0 Yes [id number] 25mg Take 1 [facility] 25 mg 4-15 tablet by ity of tablet 00:00: mouth [place] 00 every 8 Medical (eight) Branch hours as needed for Nausea and Vomiting (N/V). proMETHazin 3- No [id number] 25mg Take 1 [facility] e 25 mg 4-15 04-06 tablet by ity of tablet 00:00: 00:00 mouth [place] 00 :00 every 8 Medical (eight) Branch hours as needed for Nausea and Vomiting (N/V). proMETHazin 3- No [id number] 25mg Take 1 [facility] e 25 mg 4-15 04-06 tablet by ity of tablet 00:00: 00:00 mouth [place] 00 :00 every 8 Medical (eight) Branch hours as needed for Nausea and Vomiting (N/V). tamsulosin 2019-0 Yes [id number] .4mg Take 1 [facility] 0.4 mg 24 8-30 capsule by ity of hr capsule 00:00: mouth at [place] as 00 bedtime. Medical Branch acetaminoph 2019-0 Yes [id number] 1{tbl} Take 1-2 Univers en-codeine 8-30 tablets by ity of 300-30 mg 00:00: mouth [place] tablet 00 every 6 Medical (six) Branch hours as needed for Pain (scale 1-3). Indication s: acute pain tamsulosin 2020-0 Yes [id number] .4mg Take 1 [facility] 0.4 mg 24 8-30 capsule by ity of hr capsule 00:00: mouth at [place] as 00 bedtime. Medical Branch acetaminoph 2019-0 Yes [id number] 1{tbl} Take 1-2 [facility] en-codeine 8-30 tablets by ity of 300-30 mg 00:00: mouth [place] tablet 00 every 6 Medical (six) Branch hours as needed for Pain (scale 1-3). Indication s: acute pain tamsulosin 2020-0 Yes [id number] .4mg Take 1 [facility] 0.4 mg 24 8-30 capsule by ity of hr capsule 00:00: mouth at [place] as 00 bedtime. Medical Branch acetaminoph 2020-0 Yes [id number] 1{tbl} Take 1-2 [facility] en-codeine 8-30 tablets by ity of 300-30 mg 00:00: mouth [place] tablet 00 every 6 Medical (six) Branch hours as needed for Pain (scale 1-3). Indication s: acute pain tamsulosin 2020-0 Yes [id number] .4mg Take 1 [facility] 0.4 mg 24 8-30 capsule by ity of hr capsule 00:00: mouth at [place] as 00 bedtime. Medical Branch acetaminoph 2019-0 Yes [id number] 1{tbl} Take 1-2 [facility] en-codeine 8-30 tablets by ity of 300-30 mg 00:00: mouth [place] tablet 00 every 6 Medical (six) Branch hours as needed for Pain (scale 1-3). Indication s: acute pain tamsulosin 2020-0 Yes [id number] .4mg Take 1 [facility] 0.4 mg 24 8-30 capsule by ity of hr capsule 00:00: mouth at [place] as 00 bedtime. Medical Branch acetaminoph 2020-0 Yes [id number] 1{tbl} Take 1-2 [facility] en-codeine 8-30 tablets by ity of 300-30 mg 00:00: mouth [place] tablet 00 every 6 Medical (six) Branch hours as needed for Pain (scale 1-3). Indication s: acute pain tamsulosin 2020-0 Yes [id number] .4mg Take 1 [facility] 0.4 mg 24 8-30 capsule by ity of hr capsule 00:00: mouth at [place] as 00 bedtime. Medical Branch acetaminoph 2020-0 Yes [id number] 1{tbl} Take 1-2 [facility] en-codeine 8-30 tablets by ity of 300-30 mg 00:00: mouth [place] tablet 00 every 6 Medical (six) Branch hours as needed for Pain (scale 1-3). Indication s: acute pain tamsulosin 2020-0 Yes [id number] .4mg Take 1 [facility] 0.4 mg 24 8-30 capsule by ity of hr capsule 00:00: mouth at [place] as 00 bedtime. Medical Branch acetaminoph 2020-0 Yes [id number] 1{tbl} Take 1-2 [facility] en-codeine 8-30 tablets by ity of 300-30 mg 00:00: mouth [place] tablet 00 every 6 Medical (six) Branch hours as needed for Pain (scale 1-3). Indication s: acute pain tamsulosin 2020-0 Yes [id number] .4mg Take 1 [facility] 0.4 mg 24 8-30 capsule by ity of hr capsule 00:00: mouth at [place] as 00 bedtime. Medical Branch acetaminoph 2020-0 Yes [id number] 1{tbl} Take 1-2 [facility] en-codeine 8-30 tablets by ity of 300-30 mg 00:00: mouth [place] tablet 00 every 6 Medical (six) Branch hours as needed for Pain (scale 1-3). Indication s: acute pain tamsulosin 2020-0 Yes [id number] .4mg Take 1 [facility] 0.4 mg 24 8-30 capsule by ity of hr capsule 00:00: mouth at [place] as 00 bedtime. Medical Branch acetaminoph 2020-0 Yes [id number] 1{tbl} Take 1-2 [facility] en-codeine 8-30 tablets by ity of 300-30 mg 00:00: mouth [place] tablet 00 every 6 Medical (six) Branch hours as needed for Pain (scale 1-3). Indication s: acute pain tamsulosin 2020-0 Yes [id number] .4mg Take 1 [facility] 0.4 mg 24 8-30 capsule by ity of hr capsule 00:00: mouth at [place] as 00 bedtime. Medical Branch acetaminoph 2020-0 Yes [id number] 1{tbl} Take 1-2 [facility] en-codeine 8-30 tablets by ity of 300-30 mg 00:00: mouth [place] tablet 00 every 6 Medical (six) Branch hours as needed for Pain (scale 1-3). Indication s: acute pain tamsulosin 2020-0 Yes [id number] .4mg Take 1 [facility] 0.4 mg 24 8-30 capsule by ity of hr capsule 00:00: mouth at [place] as 00 bedtime. Medical Branch acetaminoph Yes [id number] 1{tbl} Take 1-2 [facility] en-codeine 8-30 tablets by ity of 300-30 mg 00:00: mouth [place] tablet 00 every 6 Medical (six) Branch hours as needed for Pain (scale 1-3). Indication s: acute pain tamsulosin 2020-0 Yes [id number] .4mg Take 1 [facility] 0.4 mg 24 8-30 capsule by ity of hr capsule 00:00: mouth at [place] as 00 bedtime. Medical Branch acetaminoph Yes [id number] 1{tbl} Take 1-2 [facility] en-codeine 8-30 tablets by ity of 300-30 mg 00:00: mouth [place] tablet 00 every 6 Medical (six) Branch hours as needed for Pain (scale 1-3). Indication s: acute pain tamsulosin 2019-0 Yes [id number] .4mg Take 1 [facility] 0.4 mg 24 8-30 capsule by ity of hr capsule 00:00: mouth at [place] as 00 bedtime. Medical Branch acetaminoph Yes [id number] 1{tbl} Take 1-2 [facility] en-codeine 8-30 tablets by ity of 300-30 mg 00:00: mouth [place] tablet 00 every 6 Medical (six) Branch hours as needed for Pain (scale 1-3). Indication s: acute pain tamsulosin 2019-0 Yes [id number] .4mg Take 1 [facility] 0.4 mg 24 8-30 capsule by ity of hr capsule 00:00: mouth at [place] as 00 bedtime. Medical Branch acetaminoph Yes [id number] 1{tbl} Take 1-2 [facility] en-codeine 8-30 tablets by ity of 300-30 mg 00:00: mouth [place] tablet 00 every 6 Medical (six) Branch hours as needed for Pain (scale 1-3). Indication s: acute pain tamsulosin 2019-2022- No [id number] .4mg Take 1 [facility] 0.4 mg 24 8-30 04-06 capsule by ity of hr capsule 00:00: 00:00 mouth at [place] 00 :00 bedtime. Medical Branch acetaminoph 2022- No [id number] 1{tbl} Take 1-2 [facility] en-codeine 8-30 04-06 tablets by it y of 300-30 mg 00:00: 00:00 mouth [place] tablet 00 :00 every 6 Medical (six) Branch hours as needed for Pain (scale 1-3). Indication s: acute pain tamsulosin 2022- No [id number] .4mg Take 1 [facility] 0.4 mg 24 05-17- capsule by ity of hr capsule 00:00: 00:00 mouth at [place] 00 :00 bedtime. Medical Branch acetaminoph 2022- No [id number] 1{tbl} Take 1-2 [facility] en-codeine 05-17 tablets by it y of 300-30 mg 00:00: 00:00 mouth [place] tablet 00 :00 every 6 Medical (six) Branch hours as needed for Pain (scale 1-3). Indication s: acute pain FLUoxetine Yes 20mg Take 1 [facility] rs 20 mg 2-26 tablet by ity of tablet 00:00: mouth [place] 00 daily. Medical Branch FLUoxetine Yes 20mg Take 1 [facility] rs 20 mg 2-26 tablet by ity of tablet 00:00: mouth [place] 00 daily. Medical Branch FLUoxetine Yes 20mg Take 1 [facility] rs 20 mg 2-26 tablet by ity of tablet 00:00: mouth [place] 00 daily. Medical Branch FLUoxetine Yes 20mg Take 1 [facility] rs 20 mg 2-26 tablet by ity of tablet 00:00: mouth [place] 00 daily. Medical Branch FLUoxetine Yes 20mg Take 1 [facility] rs 20 mg 2-26 tablet by ity of tablet 00:00: mouth [place] 00 daily. Medical Branch FLUoxetine 0 Yes 20mg Take 1 [facility] rs 20 mg 2-26 tablet by ity of tablet 00:00: mouth [place] 00 daily. Medical Branch FLUoxetine 0 Yes 20mg Take 1 [facility] rs 20 mg 2-26 tablet by ity of tablet 00:00: mouth [place] 00 daily. Medical Branch FLUoxetine 0 Yes 20mg Take 1 [facility] rs 20 mg 2-26 tablet by ity of tablet 00:00: mouth [place] 00 daily. Medical Branch FLUoxetine 0 Yes 20mg Take 1 [facility] rs 20 mg 2-26 tablet by ity of tablet 00:00: mouth [place] 00 daily. Medical Branch FLUoxetine 0 Yes 20mg Take 1 [facility] rs 20 mg 2-26 tablet by ity of tablet 00:00: mouth [place] 00 daily. [facility] Branch FLUoxetine 0 Yes 20mg Take 1 Unive rs 20 mg 2-26 tablet by ity of tablet 00:00: mouth [place] 00 daily. [facility] Branch FLUoxetine Yes 20mg Take 1 Unive rs 20 mg 2-26 tablet by ity of tablet 00:00: mouth [place] 00 daily. [facility] Branch FLUoxetine Yes 20mg Take 1 Unive rs 20 mg 2-26 tablet by ity of tablet 00:00: mouth [place] 00 daily. [facility] Branch FLUoxetine Yes 20mg Take 1 [facility] rs 20 mg 2-26 tablet by ity of tablet 00:00: mouth [place] 00 daily. [facility] Branch FLUoxetine Yes 20mg Take 1 [facility] rs 20 mg 2-26 tablet by ity of tablet 00:00: mouth [place] 00 daily. [facility] Branch FLUoxetine Yes 20mg Take 1 Un[facility] rs 20 mg 2-26 tablet by ity of tablet 00:00: mouth [place] 00 daily. [facility] Branch FLUoxetine Yes 20mg Take 1 Unive rs 20 mg 2-26 tablet by ity of tablet 00:00: mouth [place] 00 daily. [facility] Branch Immunizations Ordered Immunization Filled Date Status Comments Sour ce Name Immunization Name Influenza Virus Completed [facility] Vaccine Quad .5 mL IM 4 [place] [facility] 6+ MO 00:00:00 Branch Influenza Virus Completed [facility] of Vaccine Quad .5 mL IM 4 [place] [facility] 6+ MO 00:00:00 Branch Influenza Virus Completed [facility] of Vaccine Quad .5 mL IM 4 [place] [facility] 6+ MO 00:00:00 Branch Influenza Virus Completed [facility] of Vaccine Quad .5 mL IM 4 [place] [facility] 6+ MO 00:00:00 Branch Influenza Virus Completed [facility] of Vaccine Quad .5 mL IM 4 [place] [facility] 6+ MO 00:00:00 Branch Influenza Virus Completed [facility] of Vaccine Quad .5 mL IM 4 [place] [facility] 6+ MO 00:00:00 Branch Influenza Virus Completed [facility] of Vaccine Quad .5 mL IM 4 [place] [facility] 6+ MO 00:00:00 Branch Influenza Virus Completed [facility] of Vaccine Quad .5 mL IM 4 [place] [facility] 6+ MO 00:00:00 Branch Influenza Virus Completed [facility] of Vaccine Quad .5 mL IM 4 [place] [facility] 6+ MO 00:00:00 Branch Influenza Virus Completed [facility] of Vaccine Quad .5 mL IM 4 [place] [facility] 6+ MO 00:00:00 Branch Influenza Virus Completed [facility] of Vaccine Quad .5 mL IM 4 [place] [facility] 6+ MO 00:00:00 Branch Influenza Virus 0 Completed [facility] of Vaccine Quad .5 mL IM 4 [place] [facility] 6+ MO 00:00:00 Branch Influenza Virus Completed [facility] of Vaccine Quad .5 mL IM 4 [place] [facility] 6+ MO 00:00:00 Branch Influenza Virus Completed [facility] of Vaccine Quad .5 mL IM 4 [place] [facility] 6+ MO 00:00:00 Branch Influenza Virus Completed [facility] of Vaccine Quad .5 mL IM 4 [place] [facility] 6+ MO 00:00:00 Branch Influenza Virus 0 Completed [facility] of Vaccine Quad .5 mL IM 4 [place] [facility] 6+ MO 00:00:00 Branch Influenza Virus Completed [facility] of Vaccine Quad .5 mL IM 4 [place] [facility] 6+ MO 00:00:00 Branch Influenza Virus 2017-08-18 Completed [facility] of Vaccine Quad IM 3+ 8 [place] [facility] YRS 00:00:00 Branch Influenza Virus 2017-08-18 Completed [facility] y of Vaccine Quad IM 3+ 8 [place] [facility] YRS 00:00:00 Branch Influenza Virus 2017-08-18 Completed [facility] y of Vaccine Quad IM 3+ 8 [place] [facility] YRS 00:00:00 Branch Influenza Virus 2017-08-18 Completed [facility] of Vaccine Quad IM 3+ 8 [place] [facility] YRS 00:00:00 Branch Influenza Virus 2017-08-18 Completed [facility] y of Vaccine Quad IM 3+ 8 [place] [facility] YRS 00:00:00 Branch Influenza Virus 2017-08-18 Completed [facility] of Vaccine Quad IM 3+ 8 [place] [facility] YRS 00:00:00 Branch Influenza Virus 2017-08-18 Completed [facility] y of Vaccine Quad IM 3+ 8 [place] [facility] YRS 00:00:00 Branch Influenza Virus 2017-08-18 Completed [facility] of Vaccine Quad IM 3+ 8 [place] [facility] YRS 00:00:00 Branch Influenza Virus 2017-08-18 Completed [facility] y of Vaccine Quad IM 3+ 8 [place] [facility] YRS 00:00:00 Branch Influenza Virus 2017-08-18 Completed [facility] y of Vaccine Quad IM 3+ 8 [place] [facility] YRS 00:00:00 Branch Influenza Virus 2017-08-18 Completed [facility] y of Vaccine Quad IM 3+ 8 [place] [facility] YRS 00:00:00 Branch Influenza Virus 2017-08-18 Completed [facility] y of Vaccine Quad IM 3+ 8 [place] [facility] YRS 00:00:00 Branch Influenza Virus 2017-08-18 Completed [facility] y of Vaccine Quad IM 3+ 8 [place] [facility] YRS 00:00:00 Branch Influenza Virus 2017-08-18 Completed [facility] y of Vaccine Quad IM 3+ 8 [place] [facility] YRS 00:00:00 Branch Influenza Virus 2017-08-18 Completed [facility] y of Vaccine Quad IM 3+ 8 [place] [facility] YRS 00:00:00 Branch Influenza Virus 2017-08-18 Completed [facility] y of Vaccine Quad IM 3+ 8 [place] [facility] YRS 00:00:00 Branch Influenza Virus 2017-08-18 Completed [facility] of Vaccine Quad IM 3+ 8 [place] [facility] YRS 00:00:00 Branch Varicella 2017-01-17 Completed [facility] of (varivax)(chicken 6 [place] [facility] ed[facility] pox) 00:00:00 Branch MMR 2017-01-[address] 00:00:00 Branch Varicella 2017-01-17 Completed [facility] (varivax)(chicken 6 [place] [facility] pox) 00:00:00 Branch MMR 2017-01-[address] 00:00:00 Branch Varicella 2017-01-17 Completed [facility] (varivax)(chicken 6 [place] [facility] pox) 00:00:00 Branch MMR 2017-01-[address] 00:00:00 Branch Varicella 2017-01-17 Completed [facility] (varivax)(chicken 6 [place] [facility] pox) 00:00:00 Branch MMR 2017-01-[address] 00:00:00 Branch Varicella 2017-01-17 Completed [facility] (varivax)(chicken 6 [place] [facility] pox) 00:00:00 Branch MMR 2017-01-[address] 00:00:00 [place] Varicella 2017-01-17 Completed [facility] (varivax)(chicken 6 [place] [facility] pox) 00:00:00 Branch MMR 2017-01-[address] 00:00:00 Branch Varicella 2017-01-17 Completed [facility] (varivax)(chicken 6 [place] [facility] ed[facility] pox) 00:00:00 [place] MMR 2017-01-[address] 00:00:00 Branch Varicella 2017-01-17 Completed [facility] (varivax)(chicken 6 [place] [facility] ed[facility] pox) 00:00:00 [place] MMR 2017-01-[address] 00:00:00 [place] Varicella 2017-01-17 Completed [facility] (varivax)(chicken 6 [place] [facility] ed[facility] pox) 00:00:00 [place] MMR 2017-01-[address] 00:00:00 [place] Varicella 2017-01-17 Completed [facility] (varivax)(chicken 6 [place] [facility] ed[facility] pox) 00:00:00 [place] MMR 2017-01-[address] 00:00:00 [place] Varicella 2017-01-17 Completed [facility] (varivax)(chicken 6 [place] [facility] ed[facility] pox) 00:00:00 [place] MMR 2017-01-[address] 00:00:00 [place] Varicella 2017-01-17 Completed [facility] (varivax)(chicken 6 [place] [facility] ed[facility] pox) 00:00:00 [facility] 2017-01-[address] 00:00:00 [place] Varicella 2017-01-17 Completed [facility] (varivax)(chicken 6 [place] [facility] ed[facility] pox) 00:00:00 [place] MMR 2017-01-[address] 00:00:00 [place] Varicella 2017-01-17 Completed [facility] (varivax)(chicken 6 [place] [facility] ed[facility] pox) 00:00:00 [place] MMR 2017-01-[address] 00:00:00 [place] Varicella 2017-01-17 Completed [facility] (varivax)(chicken 6 [place] [facility] ed[facility] pox) 00:00:00 [place] MMR 2017-01-[address] 00:00:00 [place] Varicella 2017-01-17 Completed [facility] (varivax)(chicken 6 [place] [facility] ed[facility] pox) 00:00:00 Branch MMR 2017-01-2 Completed University [address] Medical 00:00:00 Branch Varicella 05-2 Completed [facility] (varivax)(chicken 6 [place] [facility] pox) 00:00:00 Branch MMR 2017-01-[address] Medical 00:00:00 Branch TDAP 2016-11-[address] 00:00:00 Branch TDAP 2016-11-[address] 00:00:00 Branch TDAP 2016-11-[address] 00:00:00 Branch TDAP 2016-11-[address] 00:00:00 Branch TDAP 2016-11-[address] 00:00:00 Branch TDAP 2016-11-[address] 00:00:00 Branch TDAP 2016-11-[address] 00:00:00 Branch TDAP 2016-11-[address] 00:00:00 Branch TDAP 2016-11-[address] 00:00:00 Branch TDAP 2016-11-[address] 00:00:00 Branch TDAP 2016-11-[address] 00:00:00 Branch TDAP 2016-11-[address] 00:00:00 Branch TDAP 2016-11-[address] 00:00:00 Branch TDAP 2016-11-[address] 00:00:00 Branch TDAP 2016-11-[address] 00:00:00 Branch TDAP 2016-11-[address] 00:00:00 Branch TDAP 2016-11-[address] 00:00:00 Branch Influenza Virus 0 Completed [facility] Vaccine Quad IM 3+ 7 [place] [facility] YRS 00:00:00 Branch Influenza Virus 0 Completed [facility] of Vaccine Quad IM 3+ 7 [place] [facility] YRS 00:00:00 Branch Influenza Virus 2016-06-0 Completed [facility] of Vaccine Quad IM 3+ 7 [place] [facility] YRS 00:00:00 Branch Influenza Virus 0 Completed [facility] of Vaccine Quad IM 3+ 7 [place] [facility] YRS 00:00:00 Branch Influenza Virus 201610-0 Completed [facility] of Vaccine Quad IM 3+ 7 [place] [facility] YRS 00:00:00 Branch Influenza Virus 201610-0 Completed [facility] of Vaccine Quad IM 3+ 7 [place] [facility] YRS 00:00:00 Branch Influenza Virus 201610-0 Completed [facility] of Vaccine Quad IM 3+ 7 [place] [facility] YRS 00:00:00 Branch Influenza Virus 201610-0 Completed [facility] of Vaccine Quad IM 3+ 7 [place] [facility] YRS 00:00:00 Branch Influenza Virus 201610-0 Completed [facility] of Vaccine Quad IM 3+ 7 [place] [facility] YRS 00:00:00 Branch Influenza Virus 2016-0 Completed [facility] of Vaccine Quad IM 3+ 7 [place] [facility] YRS 00:00:00 Branch Influenza Virus 2016-0 Completed [facility] of Vaccine Quad IM 3+ 7 [place] [facility] YRS 00:00:00 Branch Influenza Virus 201610-0 Completed [facility] of Vaccine Quad IM 3+ 7 [place] [facility] YRS 00:00:00 Branch Influenza Virus 201610-0 Completed [facility] of Vaccine Quad IM 3+ 7 [place] [facility] YRS 00:00:00 Branch Influenza Virus 2016-0 Completed [facility] of Vaccine Quad IM 3+ 7 [place] [facility] YRS 00:00:00 Branch Influenza Virus 2016-06-0 Completed [facility] of Vaccine Quad IM 3+ 7 [place] [facility] YRS 00:00:00 Branch Influenza Virus 2016-06-0 Completed [facility] of Vaccine Quad IM 3+ 7 [place] [facility] YRS 00:00:00 Branch Influenza Virus 2016-06-0 Completed [facility] of Vaccine Quad IM 3+ 7 [place] [facility] YRS 00:00:00 Branch Meningococcal Completed [facility] Oligosaccharide 1 [place] [facility] (groups A, C, Y and 00:00:00 Branc h W-135) conjugate vaccine (MCV4O) Meningococcal Completed [facility] Oligosaccharide 1 [place] [facility] ical (groups A, C, Y and 00:00:00 Branc h W-135) conjugate vaccine (MCV4O) Meningococcal Completed [facility] Oligosaccharide 1 [place] [facility] ical (groups A, C, Y and 00:00:00 Branc h W-135) conjugate vaccine (MCV4O) Meningococcal Completed [facility] Oligosaccharide 1 [place] [facility] ical (groups A, C, Y and 00:00:00 Branc h W-135) conjugate vaccine (MCV4O) Meningococcal Completed [facility] Oligosaccharide 1 [facility] ical (groups A, C, Y and 00:00:00 Branc h W-135) conjugate vaccine (MCV4O) Meningococcal Completed [facility] Olig[facility] [address] [place] [address] ical (groups A, C, Y and 00:00:00 Branc h W-135) conjugate vaccine (MCV4O) Meningococcal Completed [facility] [address] [place] [address] ical (groups A, C, Y and 00:00:00 Branc h W-135) conjugate vaccine (MCV4O) Meningococcal Completed [facility] [address] [place] [address] ical (groups A, C, Y and 00:00:00 Branc h W-135) conjugate vaccine (MCV4O) Meningococcal Completed [facility] [address] [place] [address] ical (groups A, C, Y and 00:00:00 Branc h W-135) conjugate vaccine (MCV4O) Meningococcal Completed [facility] [address] [place] [address] ical (groups A, C, Y and 00:00:00 Branc h W-135) conjugate vaccine (MCV4O) Meningococcal Completed [facility] [address] [place] [address] ical (groups A, C, Y and 00:00:00 Branc h W-135) conjugate vaccine (MCV4O) Meningococcal Completed [facility] [address] [place] [address] ical (groups A, C, Y and 00:00:00 Branc h W-135) conjugate vaccine (MCV4O) Meningococcal Completed [facility] [address] [place] [address] ical (groups A, C, Y and 00:00:00 Branc h W-135) conjugate vaccine (MCV4O) Meningococcal Completed [facility] 1 [facility] ical (groups A, C, Y and 00:00:00 Branc h W-135) conjugate vaccine (MCV4O) Meningococcal Completed [facility] [address] [place] [address] ical (groups A, C, Y and 00:00:00 Branc h W-135) conjugate vaccine (MCV4O) Meningococcal Completed [facility] 1 [facility] ical (groups A, C, Y and 00:00:00 Branc h W-135) conjugate vaccine (MCV4O) Meningococcal Completed [facility] Oligosaccharide 1 [facility] ical (groups A, C, Y and 00:00:00 Branc h W-135) conjugate vaccine (MCV4O) HPV 2014-07- Completed [address] 00:00:00 Branch HPV 2014-07- Completed [address] 00:00:00 Branch HPV 2014-07-[address] 00:00:00 Branch HPV 2014-07-[address] 00:00:00 Branch HPV 2014-07- Completed [facility] [address] 00:00:00 Branch HPV 2014-07- Completed [address] 00:00:00 Branch HPV 2014-07-[address] 00:00:00 Branch HPV 2014-07- Completed [facility] [address] 00:00:00 Branch HPV 2014-07- Completed [facility] [address] 00:00:00 Branch HPV 2014-07- Completed [facility] [address] 00:00:00 Branch HPV 2014-07-2 Completed [facility] [address] 00:00:00 Branch HPV 2014-07- Completed [facility] [address] 00:00:00 Branch HPV 2014-07-2 Completed [facility] [address] 00:00:00 Branch HPV 2014-07-[address] 00:00:00 Branch HPV 2014-07- Completed [facility] [address] 00:00:00 Branch HPV 2014-07- Completed [facility] [address] 00:00:00 Branch HPV 2014-07- Completed [facility] [address] 00:00:00 Branch Influenza Virus 2014-07-0 Completed [facility]it y of Vaccine Quad IM 3+ 5 [facility] Y[facility] 00:00:00 Branch Influenza Virus 2014-07-0 Completed [facility] y of Vaccine Quad IM 3+ 5 [facility] 00:00:00 Branch Influenza Virus 2014-07-0 Completed [facility] y of Vaccine Quad IM 3+ 5 [facility] 00:00:00 Branch Influenza Virus 2014-07-0 Completed [facility] y of Vaccine Quad IM 3+ 5 [facility] 00:00:00 Branch Influenza Virus 2014-07-0 Completed [facility] y of Vaccine Quad IM 3+ 5 [facility] 00:00:00 Branch Influenza Virus 2014-07-0 Completed [facility] y of Vaccine Quad IM 3+ 5 [facility] 00:00:00 Branch Influenza Virus 2014-07-0 Completed [facility] y of Vaccine Quad IM 3+ 5 [facility] 00:00:00 Branch Influenza Virus 2014-07-0 Completed [facility] y of Vaccine Quad IM 3+ 5 [facility] 00:00:00 Branch Influenza Virus 2014-07-0 Completed [facility] y of Vaccine Quad IM 3+ 5 [facility] 00:00:00 Branch Influenza Virus 2014-07-0 Completed [facility] y of Vaccine Quad IM 3+ 5 [facility] 00:00:00 Branch Influenza Virus 2014-07-0 Completed [facility] y of Vaccine Quad IM 3+ 5 [facility] 00:00:00 Branch Influenza Virus 2014-07-0 Completed [facility] y of Vaccine Quad IM 3+ 5 [facility] 00:00:00 Branch Influenza Virus 2014-07-0 Completed [facility] y of Vaccine Quad IM 3+ 5 [facility] 00:00:00 Branch Influenza Virus 2014-07-0 Completed [facility] y of Vaccine Quad IM 3+ 5 [facility] 00:00:00 Branch Influenza Virus 2014-07-0 Completed [facility] y of Vaccine Quad IM 3+ 5 [facility] 00:00:00 Branch Influenza Virus 2014-07-0 Completed [facility] y of Vaccine Quad IM 3+ 5 [facility] 00:00:00 Branch Influenza Virus 2014-07-0 Completed [facility] y of Vaccine Quad IM 3+ 5 [facility] 00:00:00 Branch Influenza Virus 2013-07-19 Completed [facility] Vaccine (3+ yrs) [facility] 00:[facility] Branch Influenza Virus 2013-07- Completed [facility] Vaccine (3+ yrs) 4 [facility] 00:00:00 Branch Influenza Virus 2013-07- Completed [facility] Vaccine (3+ yrs) 4 [facility] 00:00:00 Branch Influenza Virus 2013-07-19 Completed [facility] Vaccine (3+ yrs) 4 [facility] 00:00:00 Branch Influenza Virus 2013-07-19 Completed [facility] Vaccine (3+ yrs) 4 [facility] 00:00:00 Branch Influenza Virus 2013-07-19 Completed [facility] Vaccine (3+ yrs) 4 [facility] 00:00:00 Branch Influenza Virus 2013-07-19 Completed [facility] of Vaccine (3+ yrs) 4 [facility] 00:00:00 Branch Influenza Virus 2013-07-19 Completed [facility] of Vaccine (3+ yrs) 4 [facility] 00:00:00 Branch Influenza Virus 2013-07-19 Completed [facility] Vaccine (3+ yrs) 4 [facility] 00:00:00 Branch Influenza Virus 2013-07-19 Completed [facility] of Vaccine (3+ yrs) 4 [facility] 00:00:00 Branch Influenza Virus 2013-07-19 Completed [facility] Vaccine (3+ yrs) 4 [facility] 00:00:00 Branch Influenza Virus 2013-07-19 Completed [facility] Vaccine (3+ yrs) 4 [facility] 00:00:00 Branch Influenza Virus 2013-07-19 Completed Universit y of Vaccine (3+ yrs) 4 [facility] dical 00:00:00 Branch Influenza Virus 2013-07-19 Completed Universit y of Vaccine (3+ yrs) 4 [facility] dical 00:00:00 Branch Influenza Virus 2013-07-19 Completed Universit y of Vaccine (3+ yrs) 4 [facility] dical 00:00:00 Branch Influenza Virus 2013-07-19 Completed Universit y of Vaccine (3+ yrs) 4 [facility] dical 00:00:00 Branch Influenza Virus 2013-07-19 Completed Universit y of Vaccine (3+ yrs) 4 [facility] dical 00:00:00 Branch HPV 0 Completed [address] 00:00:00 Branch HPV Completed [address] 00:00:00 Branch HPV 0 Completed [address] 00:00:00 Branch HPV Completed [address] 00:00:00 Branch HPV Completed [address] 00:00:00 Branch HPV Completed [address] 00:00:00 Branch HPV Completed [address] 00:00:00 Branch HPV Completed [address] 00:00:00 Branch HPV 2013-08-[address] 00:00:00 Branch HPV Completed [facility] [address] [facility] 00:00:00 Branch HPV Completed [facility] [address] [facility] 00:00:00 Branch HPV Completed [facility] [address] [facility] 00:00:00 Branch HPV Completed [facility] [address] [facility] 00:00:00 Branch HPV Completed [facility] [address] [facility] 00:00:00 Branch HPV Completed [facility] [address] [facility] 00:00:00 Branch HPV Completed [facility] [address] [facility] 00:00:00 Branch HPV Completed [facility] [address] [facility] 00:00:00 Branch TDAP 2011-04-18 Completed [facility] [address] [facility] 00:00:00 Branch HPV 2011-04-18 Completed [facility] [address] [facility] 00:00:00 Branch Meningococcal 2011-04-18 Completed [facility] [place] [facility] (groups A, C, Y and 00:00:00 Branc h W-135) conjugate vaccine (MCV4P) TDAP 2011-04-18 Completed [facility] [address] [facility] 00:00:00 Branch HPV 2011-04-18 Completed [facility] [address] [facility] 00:00:00 Branch Meningococcal 2011-04-18 Completed [facility] Polysaccharide 1 [place] [facility] (groups A, C, Y and 00:00:00 Branc h W-135) conjugate vaccine (MCV4P) TDAP 2011-04-18 Completed [facility] [address] [facility] 00:00:00 Branch HPV 2011-04-18 Completed [facility] [address] [place] [address] Medical 00:00:00 Branch Meningococcal 2011-04-18 Completed [facility] Polysaccharide 1 [place] [facility] (groups A, C, Y and 00:00:00 Branc h W-135) conjugate vaccine (MCV4P) TDAP 2011-04-18 Completed [facility] [address] [place] [address] Medical 00:00:00 Branch HPV 2011-04-18 Completed [facility] [place] [facility] 00:00:00 Branch Meningococcal 2011-04-18 Completed [facility] Polysaccharide 1 [place] [facility] (groups A, C, Y and 00:00:00 Branc h W-135) conjugate vaccine (MCV4P) TDAP 2011-04-18 Completed [facility] [address] [facility] 00:00:00 Branch HPV 2011-04-18 Completed [facility] 1 [facility] 00:00:00 Branch Meningococcal 2011-04-18 Completed [facility] Polysaccharide 1 [place] [facility] (groups A, C, Y and 00:00:00 Branc h W-135) conjugate vaccine (MCV4P) TDAP 2011-04-18 Completed [facility] [address] 00:00:00 Branch HPV 2011-04-18 Completed [facility] [address] 00:00:00 Branch Meningococcal 2011-04-18 Completed [facility] Polysaccharide 1 [place] [facility] (groups A, C, Y and 00:00:00 Branc h W-135) conjugate vaccine (MCV4P) TDAP 2011-04-18 Completed [facility] [address] 00:00:00 Branch HPV 2011-04-18 Completed [facility] [address] 00:00:00 Branch Meningococcal 2011-04-18 Completed [facility] Polysaccharide 1 [place] [facility] (groups A, C, Y and 00:00:00 Branc h W-135) conjugate vaccine (MCV4P) TDAP 2011-04-[address] 00:00:00 Branch HPV 2011-04-18 Completed [facility] [address] 00:00:00 Branch Meningococcal 2011-04-18 Completed [facility] Polysaccharide 1 [place] [facility] (groups A, C, Y and 00:00:00 Branc h W-135) conjugate vaccine (MCV4P) TDAP 2011-04-[address] 00:00:00 Branch HPV 2011-04-18 Completed [facility] [address] 00:00:00 Branch Meningococcal 2011-04-18 Completed [facility] Polysaccharide 1 [place] [facility] (groups A, C, Y and 00:00:00 Branc h W-135) conjugate vaccine (MCV4P) TDAP 2011-04-18 Completed [facility] [address] 00:00:00 Branch HPV 2011-04-18 Completed [facility] [address] 00:00:00 Branch Meningococcal 2011-04-18 Completed [facility] Polysaccharide 1 [place] [facility] (groups A, C, Y and 00:00:00 Branc h W-135) conjugate vaccine (MCV4P) TDAP 2011-04-18 Completed [facility] [address] 00:00:00 Branch HPV 2011-04-18 Completed [facility] [address] 00:00:00 Branch Meningococcal 2011-04-18 Completed [facility] Polysaccharide 1 [place] [facility] (groups A, C, Y and 00:00:00 Branc h W-135) conjugate vaccine (MCV4P) TDAP 2011-04-18 Completed [facility] [address] 00:00:00 Branch HPV 2011-04-18 Completed [facility] [address] 00:00:00 Branch Meningococcal 2011-04-18 Completed [facility] Polysaccharide 1 [place] [facility] (groups A, C, Y and 00:00:00 Branc h W-135) conjugate vaccine (MCV4P) TDAP 2011-04-18 Completed [facility] [address] 00:00:00 Branch HPV 2011-04-18 Completed [facility] [address] 00:00:00 Branch Meningococcal 2011-04-18 Completed [facility] Polysaccharide 1 [place] [facility] (groups A, C, Y and 00:00:00 Branc h W-135) conjugate vaccine (MCV4P) TDAP 2011-04-[address] 00:00:00 Branch HPV 2011-04-18 Completed [facility] [address] 00:00:00 Branch Meningococcal 2011-04-18 Completed [facility] Polysaccharide 1 [place] [facility] (groups A, C, Y and 00:00:00 Branc h W-135) conjugate vaccine (MCV4P) TDAP 2011-04-18 Completed [facility] [address] 00:00:00 Branch HPV 2011-04-18 Completed [facility] [address] 00:00:00 Branch Meningococcal 2011-04-18 Completed [facility] Polysaccharide 1 [place] [facility] (groups A, C, Y and 00:00:00 Branc h W-135) conjugate vaccine (MCV4P) TDAP 2011-04-[address] 00:00:00 Branch HPV 2011-04-18 Completed [facility] [address] 00:00:00 Branch Meningococcal 2011-04-18 Completed [facility] Polysaccharide 1 [place] [facility] (groups A, C, Y and 00:00:00 Branc h W-135) conjugate vaccine (MCV4P) TDAP 2011-04-18 Completed [facility] [address] 00:00:00 Branch HPV 2011-04-18 Completed [facility] [address] 00:00:00 Branch Meningococcal 2011-04-18 Completed [facility] Polysaccharide 1 [place] [facility] (groups A, C, Y and 00:00:00 Branc h W-135) conjugate vaccine (MCV4P) HPV (quadrivalent) 2011-04-18 Completed Source[facility] 00[facility]00:00 Tdap 2011-04-18 Completed Source: Other [facility] 00:00:00 HPV (quadrivalent) 2011-04-18 Completed Source: Other [facility] 1 [facility] Wellness 00:00:00 Tdap 2011-04-18 Completed Source: Other [place] [id number] [facility] Wellness 00:00:00 HPV (quadrivalent) 2011-04-18 Completed Source: Other [facility] 1 [facility] 00:00:00 Tdap 2011-04-18 Completed Source: Other [facility] 1 [facility] 00:00:00 HPV (quadrivalent) 2011-04-18 Completed Source: Other [facility] 1 [facility] 00:00:00 Tdap 2011-04-18 Completed Source: Other [facility] 1 [facility] 00:00:00 Influenza Virus 2010-06-19 Completed Universit y of Vaccine 5 [facility] 00:00:00 Branch Influenza Virus 2010-06-19 Completed [facility] y of Vaccine 5 [facility] 00:00:00 Branch Influenza Virus 2010-06-19 Completed [facility] y of Vaccine 5 [facility] 00:00:00 Branch Influenza Virus 2010-06-19 Completed [facility] y of Vaccine 5 [facility] 00:00:00 Branch Influenza Virus 2010-06-19 Completed [facility]it y of Vaccine 5 [facility] 00:00:00 Branch Influenza Virus 2010-06-19 Completed [facility]it y of Vaccine 5 [facility] 00:00:00 Branch Influenza Virus 2010-06-19 Completed [facility]it y of Vaccine 5 [facility] 00:00:00 Branch Influenza Virus 2010-06-19 Completed [facility]it y of Vaccine 5 [facility] 00:00:00 Branch Influenza Virus 2010-06-19 Completed [facility]it y of Vaccine 5 [facility] 00:00:00 Branch Influenza Virus 2010-06-19 Completed [facility]it y of Vaccine 5 [facility] 00:00:00 Branch Influenza Virus 2010-06-19 Completed [facility]it y of Vaccine 5 [facility] 00:00:00 Branch Influenza Virus 2010-06-19 Completed [facility]it y of Vaccine 5 [facility] 00:00:00 Branch Influenza Virus 2010-06-19 Completed [facility] y of Vaccine 5 [facility] 00:00:00 Branch Influenza Virus 2010-06-19 Completed [facility]it y of Vaccine 5 [facility] 00:00:00 Branch Influenza Virus 2010-06-19 Completed [facility]it y of Vaccine 5 [facility] 00:00:00 Branch Influenza Virus 2010-06-19 Completed [facility] y of Vaccine 5 [facility] 00:00:00 Branch Influenza Virus 2010-06-19 Completed [facility]it y of Vaccine 5 [facility] 00:00:00 Branch flu (split) (3 yrs or 2010-06-19 Completed Source: Other [facility] older) 5 [facility] 00:00:00 flu (split) (3 yrs or 2010-06-19 Completed Source: Other [facility] older) 5 [facility] 00:00:00 flu (split) (3 yrs or 2010-06-19 Completed Source: Other [facility] 5 [facility] 00:00:00 flu (split) (3 yrs or 2010-06-19 Completed Source: Other [facility] 5 [facility] 00:00:00 Influenza Virus 2008--2 Completed Universit y of Vaccine [address] [place] [address] 00:00:00 Branch Influenza Virus 2008--2 Completed [facility] y of Vaccine [address] [place] [address] 00:00:00 Branch Influenza Virus 2008--2 Completed [facility] y of Vaccine [address] [place] [address] 00:00:00 Branch Influenza Virus 2009-07-2 Completed [facility] y of Vaccine [address] [place] [address] 00:00:00 Branch Influenza Virus 2008--2 Completed [facility] y of Vaccine [address] [place] [address] 00:00:00 Branch Influenza Virus 2008--2 Completed [facility] y of Vaccine [address] [place] [address] 00:00:00 Branch Influenza Virus 2008--2 Completed [facility] y of Vaccine [address] [place] [address] 00:00:00 Branch Influenza Virus 2008--2 Completed [facility] y of Vaccine [address] [place] [address] 00:00:00 Branch Influenza Virus 2008--2 Completed [facility] y of Vaccine 4 [facility] 00:00:00 Branch Influenza Virus 2008--2 Completed Universit y of Vaccine [address] [place] [address] 00:00:00 Branch Influenza Virus 2008--2 Completed [facility] y of Vaccine 4 [facility] 00:00:00 Branch Influenza Virus 2008--2 Completed [facility] y of Vaccine 4 [facility] 00:00:00 Branch Influenza Virus 2008--2 Completed Universit y of Vaccine [address] [place] [address] 00:00:00 Branch Influenza Virus 2008--2 Completed [facility] y of Vaccine [address] [place] [address] 00:00:00 Branch Influenza Virus 2008--2 Completed [facility] Vaccine 4 [facility] 00:00:00 Branch Influenza Virus 2009-07-20 Completed [facility] Vaccine 4 [facility] 00:00:00 Branch Influenza Virus 2009-07-20 Completed [facility] Vaccine 4 [facility] 00:00:00 Branch flu (split) (3 yrs or 2009-07-20 Completed Source: Other [facility] older) 4 [facility] 00:00:00 flu (split) (3 yrs or 2009-07-20 Completed Source: Other [facility] older) 4 [facility] 00:00:00 flu (split) (3 yrs or 2009-07-20 Completed Source: Other [facility] older) 4 [facility] 00:00:00 flu (split) (3 yrs or 2009-07-20 Completed Source: Other [facility] older) 4 [facility] 00:00:00 HEPATITIS A 2004-08-18 Completed [facility] 00:00:00 Branch HEPATITIS A 2004-08-18 Completed [facility] 00:00:00 Branch HEPATITIS A 2004-08-18 Completed [facility] 00:00:00 Branch HEPATITIS A 2004-08-18 Completed [facility] 00:00:00 Branch HEPATITIS A 2004-08-18 Completed [facility] 00:00:00 Branch HEPATITIS A 2004-08-18 Completed [facility] 00:00:00 Branch HEPATITIS A 2004-08-18 Completed [facility] 00:00:00 Branch HEPATITIS A 2004-08-18 Completed [facility] 00:00:00 Branch HEPATITIS A 2004-08-18 Completed [facility] 00:00:00 Branch HEPATITIS A 2004-08-18 Completed [facility] 00:00:00 Branch HEPATITIS A 2004-08-18 Completed [facility] 00:00:00 Branch HEPATITIS A 2004-08-18 Completed [facility] 00:00:00 Branch HEPATITIS A 2004-08-18 Completed [facility] 00:00:00 Branch HEPATITIS A 2004-08-18 Completed [facility] 00:00:00 Branch HEPATITIS A 2004-08-18 Completed [facility] 00:00:00 Branch HEPATITIS A 2004-08-18 Completed [facility] 00:00:00 Branch HEPATITIS A 2004-08-18 Completed [facility] 00:00:00 Branch hep A (ped/adol, 2 2004-08-18 Completed Source: Other [facility] dose) 0 [facility] 00:00:00 hep A (ped/adol, 2 2004-08-18 Completed Source: Other [facility] dose) 0 [facility] 00:00:00 hep A (ped/adol, 2 2004-08-18 Completed Source: Other [facility] dose) 0 [facility] 00:00:00 hep A (ped/adol, 2 2004-08-18 Completed Source: Other [facility] dose) 0 [facility] 00:00:00 DTAP Completed [facility] 00:00:00 Branch Polio (IPV/OPV) Completed [facility] 1 [facility] 00:00:00 Branch DTAP Completed [facility] 00:00:00 Branch Polio (IPV/OPV) Completed [facility] 1 [facility] 00:00:00 Branch DTAP Completed [facility] 00:00:00 Branch Polio (IPV/OPV) Completed [facility] 1 [facility] 00:00:00 Branch DTAP Completed [facility] 00:00:00 Branch Polio (IPV/OPV) Completed [facility] 1 [facility] 00:00:00 Branch DTAP Completed [facility] 00:00:00 Branch Polio (IPV/OPV) Completed [facility] 1 [facility] 00:00:00 Branch DTAP Completed [facility] 00:00:00 Branch Polio (IPV/OPV) Completed [facility] of 1 [facility] 00:00:00 Branch DTAP Completed [facility] 00:00:00 Branch Polio (IPV/OPV) Completed [facility] 1 [facility] 00:00:00 Branch DTAP Completed [facility] 00:00:00 Branch Polio (IPV/OPV) Completed [facility] of 1 [facility] 00:00:00 Branch DTAP Completed [facility] 00:00:00 Branch Polio (IPV/OPV) Completed [facility] of 1 [facility] 00:00:00 Branch DTAP Completed [facility] 00:00:00 Branch Polio (IPV/OPV) Completed [facility] 1 [facility] 00:00:00 Branch DTAP Completed [facility] 00:00:00 Branch Polio (IPV/OPV) Completed [facility] 1 [facility] 00:00:00 Branch DTAP Completed [facility] 00:00:00 Branch Polio (IPV/OPV) Completed [facility] 1 [facility] 00:00:00 Branch DTAP Completed [facility] 00:00:00 Branch Polio (IPV/OPV) Completed [facility] 1 [facility] 00:00:00 Branch DTAP Completed [facility] 00:00:00 Branch Polio (IPV/OPV) Completed [facility] 1 [facility] 00:00:00 Branch DTAP Completed [facility] 00:00:00 Branch Polio (IPV/OPV) Completed [facility] 1 [facility] 00:00:00 Branch DTAP Completed [facility] 00:00:00 Branch Polio (IPV/OPV) Completed [facility] 1 [facility] 00:00:00 Branch DTAP Completed [facility] 00:00:00 Branch Polio (IPV/OPV) Completed [facility] 1 [facility] 00:00:00 Branch DTAP 2003-04-18 Completed [facility] 00:00:00 Branch HEPATITIS A 2003-04-18 Completed [facility] 00:00:00 Branch Polio (IPV/OPV) 2003-04-18 Completed [facility] of 1 [facility] 00:00:00 Branch Polio (IPV/OPV) 2002-07-19 Completed [facility] of 8 [facility] 00:00:00 Branch Polio (IPV/OPV) 2002-07-19 Completed [facility] y of 8 [facility] 00:00:00 Branch Polio (IPV/OPV) 2002-07-19 Completed [facility] y of 8 [facility] 00:00:00 Branch Polio (IPV/OPV) 2002-07-19 Completed [facility] y of 8 [facility] 00:00:00 Branch Polio (IPV/OPV) 2002-07-19 Completed [facility] y of 8 [facility] 00:00:00 Branch Polio (IPV/OPV) 2002-07-19 Completed [facility] y of 8 [facility] 00:00:00 Branch Polio (IPV/OPV) 2002-07-19 Completed [facility] y of 8 [facility] 00:00:00 Branch Polio (IPV/OPV) 2002-07-19 Completed [facility] y of 8 [facility] 00:00:00 Branch Polio (IPV/OPV) 2002-07-19 Completed [facility] y of 8 [facility] 00:00:00 Branch Polio (IPV/OPV) 2002-07-19 Completed [facility] y of 8 [facility] 00:00:00 Branch Polio (IPV/OPV) 2002-07-19 Completed [facility] y of 8 [facility] 00:00:00 Branch Polio (IPV/OPV) 2002-07-19 Completed [facility] y of 8 [facility] 00:00:00 Branch Polio (IPV/OPV) 2002-07-19 Completed [facility] y of 8 [facility] 00:00:00 Branch Polio (IPV/OPV) 2002-07-19 Completed [facility] y of 8 [facility] 00:00:00 Branch Polio (IPV/OPV) 2002-07-19 Completed [facility] y of 8 [facility] 00:00:00 Branch Polio (IPV/OPV) 2002-07-19 Completed [facility] y of 8 [facility] 00:00:00 Branch Polio (IPV/OPV) 2002-07-19 Completed Universit y of 8 [facility] 00:00:00 Branch Hep B, Adol or Pedi 2002-07-19 Completed Unive rsity of Dosage 6 [facility] 00:00:00 Branch Hep B, Adol or Pedi 2002-07-19 Completed Unive rsity of Dosage 6 [facility] 00:00:00 Branch Hep B, Adol or Pedi 2002-07-19 Completed Unive rsity of Dosage 6 [facility] 00:00:00 Branch Hep B, Adol or Pedi 2002-07-19 Completed Unive rsity of Dosage 6 [facility] 00:00:00 Branch Hep B, Adol or Pedi 2002-07-19 Completed Unive rsity of Dosage 6 [facility] 00:00:00 Branch Hep B, Adol or Pedi 2002-07-19 Completed [facility] D[facility] 6 [facility] 00:00:00 [facility] Hep B, Adol or Pedi 2002-07-19 Completed [facility] 00:00:00 [facility] Hep B, Adol or Pedi 2002-07-19 Completed [facility] Dosage 6 [facility] 00:00:00 Branch Hep B, Adol or Pedi 2002-07-19 Completed [facility] Dosage 6 [facility] 00:00:00 Branch Hep B, Adol or Pedi 2002-07-19 Completed [facility] Dosage 6 [facility] 00:00:00 Branch Hep B, Adol or Pedi 2002-07-19 Completed [facility] Dosage 6 [facility] 00:00:00 Branch Hep B, Adol or Pedi 2002-07-19 Completed [facility] Dosage 6 [facility] 00:00:00 Branch Hep B, Adol or Pedi 2002-07-19 Completed [facility] Dosage 6 [facility] 00:00:00 Branch Hep B, Adol or Pedi 2002-07-19 Completed [facility] Dosage 6 [facility] 00:00:00 Branch Hep B, Adol or Pedi 2002-07-19 Completed [facility] Dosage 6 [facility] 00:00:00 Branch Hep B, Adol or Pedi 2002-07-19 Completed [facility] Dosage 6 [facility] 00:00:00 Branch Hep B, Adol or Pedi 2002-07-19 Completed [facility] Dosage 6 [facility] 00:00:00 Branch MMR Completed [facility] 00:00:00 Branch MMR Completed [facility] 00:00:00 Branch MMR Completed [facility] 00:00:00 Branch MMR Completed [facility] 2 [facility] 00:00:00 [facility] MMR [facility]pleted [facility] 00:00:00 [facility] MMR Completed [facility] 00:00:00 [facility] MMR Completed [facility] 00:00:00 [facility] MMR Completed [facility] 00:00:00 [facility] MMR Completed [facility] 00:00:00 [facility] MMR Completed [facility] 00:00:00 [facility] MMR Completed [facility] 00:00:00 [facility] MMR Completed [facility] 00:00:00 [facility] MMR Completed [facility] 00:00:00 [facility] MMR Completed [facility] 00:00:00 [facility] MMR Completed [facility] 00:00:00 [facility] MMR Completed [facility] 2 [facility] 00:00:00 [facility] MMR Completed [facility] 2 [facility] 00:00:00 Branch Varicella Completed [facility] (varivax)(chicken [facility] 00:00:00 Branch Varicella Completed [facility] (varivax)(chicken 2 [facility] 00:00:00 Branch Varicella Completed [facility] (varivax)(chicken 2 [facility] 00:00:00 Branch Varicella Completed [facility] (varivax[facility]chicken 2 [facility] 00:00:00 Branch Varicella Completed [facility] (varivax)(chicken 2 [facility] 00:00:00 Branch Varicella Completed [facility] (varivax)(chicken 2 [facility] 00:00:00 Branch Varicella Completed [facility] (varivax)(chicken 2 [facility] 00:00:00 Branch Varicella Completed [facility] (varivax)(chicken 2 [facility] 00:00:00 Branch Varicella Completed [facility] (varivax)(chicken 2 [facility] 00:00:00 Branch Varicella Completed [facility] (varivax)(chicken 2 [facility] 00:00:00 Branch Varicella Completed [facility] (varivax)(chicken 2 [facility] 00:00:00 Branch Varicella Completed [facility] (varivax)(chicken 2 [facility] 00:00:00 Branch Varicella Completed [facility] (varivax)(chicken 2 [facility] 00:00:00 Branch Varicella Completed [facility] (varivax)(chicken 2 [facility] 00:00:00 Branch Varicella Completed [facility] (varivax)(chicken 2 [facility] 00:00:00 Branch Varicella Completed [facility] (varivax)(chicken 2 [facility] 00:00:00 Branch Varicella Completed [facility] (varivax)(chicken 2 [facility] 00:00:00 Branch DTAP 1999-12-18 Completed [facility] 00:00:00 [facility] Polio (IPV/OPV) 1999-12-18 Completed [facility] 0 [facility] 00:00:00 Branch MMR 1999-12-18 Completed [facility] 00:00:00 Branch Varicella 1999-12-18 Completed [facility] (varivax)(chicken 0 [facility] 00:00:00 Branch DTAP 1999-12-18 Completed [facility] 00:00:00 Branch Polio (IPV/OPV) 1999-12-18 Completed [facility] 0 [facility] 00:00:00 Branch MMR 1999-12-18 Completed [facility] 00:00:00 Branch Varicella 1999-12-18 Completed [facility] (varivax)(chicken 0 [facility] 00:00:00 Branch DTAP 1999-12-18 Completed [facility] 00:00:00 [facility] Polio (IPV/OPV) 1999-12-18 Completed [facility] 0 [facility] 00:00:00 [facility] MMR 1999-12-18 Completed [facility] 00:00:00 Branch Varicella 1999-12-18 Completed [facility] (varivax)(chicken 0 [facility] 00:00:00 Branch DTAP 1999-12-18 Completed [facility] 00:00:00 Branch Polio (IPV/OPV) 1999-12-18 Completed [facility] 00:00:00 Branch MMR 1999-12-18 Completed [facility] 00:00:00 Branch Varicella 1999-12-18 Completed [facility] (varivax)(chicken 0 [facility] 00:00:00 Branch DTAP 1999-12-18 Completed [facility] 00:00:00 Branch Polio (IPV/OPV) 1999-12-18 Completed [facility] 0 [facility] 00:00:00 Branch MMR 1999-12-18 Completed [facility] 00:00:00 Branch Varicella 1999-12-18 Completed [facility] (varivax)(chicken 0 [facility] 00:00:00 Branch DTAP 1999-12-18 Completed [facility] 00:00:00 Branch Polio (IPV/OPV) 1999-12-18 Completed [facility] 0 [facility] 00[facility]00:00 Branch MMR 1999-12-18 Completed [facility] 00:00:00 Branch Varicella 1999-12-18 Completed [facility] (varivax)(chicken 0 [facility] 00:00:00 Branch DTAP 1999-12-18 Completed [facility] 00:00:00 Branch Polio (IPV/OPV) 1999-12-18 Completed [facility] 0 [facility] 00:00:00 Branch MMR 1999-12-18 Completed [facility] 00:00:00 Branch Varicella 1999-12-18 Completed [facility] (varivax)(chicken 0 [facility] 00:00:00 Branch DTAP 1999-12-18 Completed [facility] 00:00:00 Branch Polio (IPV/OPV) 1999-12-18 Completed [facility] 0 [facility] 00[facility]00:00 Branch MMR 1999-12-18 Completed [facility] 00:00:00 Branch Varicella 1999-12-18 Completed [facility] (varivax)(chicken 0 [facility] 00:00:00 Branch DTAP 1999-12-18 Completed [facility] 00:00:00 Branch Polio (IPV/OPV) 1999-12-18 Completed [facility] 0 [facility] 00:00:00 Branch MMR 1999-12-18 Completed [facility] 0 [facility] 00:00:00 Branch Varicella 1999-12-18 Completed [facility] (varivax)(chicken 0 [facility] 00:00:00 Branch DTAP 1999-12-18 Completed [facility] 0 [facility] 00:00:00 Branch Polio (IPV/OPV) 1999-12-18 Completed [facility] 0 [facility] 00:00:00 Branch MMR 1999-12-18 Completed [facility] 00:00:00 Branch Varicella 1999-12-18 Completed [facility] (varivax)(chicken 0 [facility] 00:00:00 Branch DTAP 1999-12-18 Completed [facility] 00:00:00 Branch Polio (IPV/OPV) 1999-12-18 Completed [facility] 0 [facility] 00:00:00 Branch MMR 1999-12-18 Completed [facility] 00:00:00 Branch Varicella 1999-12-18 Completed [facility] (varivax)(chicken 0 [facility] 00:00:00 Branch DTAP 1999-12-18 Completed [facility] 00:00:00 Branch Polio (IPV/OPV) 1999-12-18 Completed [facility] 0 [facility] 00:00:00 Branch MMR 1999-12-18 Completed [facility] 0 [facility] 00:00:00 Branch Varicella 1999-12-18 Completed [facility] (varivax)(chicken 0 [facility] 00:00:00 Branch DTAP 1999-12-18 Completed [facility] 00:00:00 Branch Polio (IPV/OPV) 1999-12-18 Completed [facility] 0 [facility] 00:00:00 Branch MMR 1999-12-18 Completed [facility] 00:00:00 Branch Varicella 1999-12-18 Completed [facility] (varivax)(chicken 0 [facility] 00:00:00 Branch DTAP 1999-12-18 Completed [facility] 00[facility]00:00 Branch Polio (IPV/OPV) 1999-12-18 Completed [facility] 0 [facility] 00:00:00 Branch MMR 1999-12-18 Completed [facility] 0 [facility] 00:00:00 Branch Varicella 1999-12-18 Completed [facility] (varivax)(chicken 0 [facility] 00:00:00 Branch DTAP 1999-12-18 Completed [facility] 00:00:00 Branch Polio (IPV/OPV) 1999-12-18 Completed [facility] 0 [facility] 00:00:00 Branch MMR 1999-12-18 Completed [facility] 00:00:00 Branch Varicella 1999-12-18 Completed [facility] (varivax)(chicken 0 [facility] 00:00:00 Branch DTAP 1999-12-18 Completed [facility] 0 [facility] 00:00:00 Branch Polio (IPV/OPV) 1999-12-18 Completed [facility] 0 [facility] 00:00:00 Branch MMR 1999-12-18 Completed [facility] 0 [facility] 00:00:00 Branch Varicella 1999-12-18 Completed [facility] (varivax)(chicken 0 [facility] 00:00:00 Branch DTAP 1999-12-18 Completed [facility] 0 [facility] 00:00:00 Branch Polio (IPV/OPV) 1999-12-18 Completed [facility] 0 [facility] 00:00:00 Branch MMR 1999-12-18 Completed [facility] 0 [facility] 00:00:00 Branch Varicella 1999-12-18 Completed [facility] (varivax)(chicken 0 [facility] 00:00:00 Branch DTAP 1999-01-16 Completed [facility] of [address] [place] [address] Medical 00:00:00 Branch HIB 4 Dose Schedule 1999-01-16 Completed [facility] of 8 [facility] 00:00:00 Branch Polio (IPV/OPV) 1999-01-16 Completed [facility] of 8 [facility] 00:00:00 Branch Hep B, Adol or Pedi 1999-01-16 Completed [facility] Dosage 8 [facility] 00:00:00 Branch DTAP 1999-01-16 Completed [facility] of [address] [place] [address] Medical 00:00:00 Branch HIB 4 Dose Schedule 1999-01-16 Completed [facility] 8 [facility] 00:00:00 Branch Polio (IPV/OPV) 1999-01-16 Completed [facility] of 8 [facility] 00:00:00 Branch Hep B, Adol or Pedi 1999-01-16 Completed [facility] Dosage 8 [facility] 00:00:00 Branch DTAP 1999-01-16 Completed [facility] [address] Medical 00:00:00 Branch HIB 4 Dose Schedule 1999-01-16 Completed [facility] 8 [facility] 00:00:00 Branch Polio (IPV/OPV) 1999-01-16 Completed [facility] of 8 [facility] 00:00:00 Branch Hep B, Adol or Pedi 1999-01-16 Completed [facility] Dosage 8 [facility] 00:00:00 Branch DTAP 1999-01-16 Completed [facility] [address] Medical 00:00:00 Branch HIB 4 Dose Schedule 1999-01-16 Completed [facility] of 8 [facility] 00:00:00 Branch Polio (IPV/OPV) 1999-01-16 Completed [facility] of 8 [facility] 00:00:00 Branch Hep B, Adol or Pedi 1999-01-16 Completed [facility] Dosage 8 [facility] 00:00:00 Branch DTAP 1999-01-16 Completed [facility] [address] 00:00:00 Branch HIB 4 Dose Schedule 1999-01-16 Completed [facility] of 8 [facility] 00:00:00 Branch Polio (IPV/OPV) 1999-01-16 Completed [facility] of 8 [facility] 00:00:00 Branch Hep B, Adol or Pedi 1999-01-16 Completed [facility] Dosage 8 [facility] 00:00:00 Branch DTAP 1999-01-16 Completed [facility] [address] 00:00:00 Branch HIB 4 Dose Schedule 1999-01-16 Completed [facility] of 8 [facility] 00:00:00 Branch Polio (IPV/OPV) 1999-01-16 Completed [facility] of 8 [facility] 00:00:00 Branch Hep B, Adol or Pedi 1999-01-16 Completed [facility] Dosage 8 [facility] 00:00:00 Branch DTAP 1999-01-16 Completed [facility] [address] [place] [address] Medical 00:00:00 Branch HIB 4 Dose Schedule 1999-01-16 Completed [facility] of 8 [facility] 00:00:00 Branch Polio (IPV/OPV) 1999-01-16 Completed [facility] of 8 [facility] 00:00:00 Branch Hep B, Adol or Pedi 1999-01-16 Completed [facility] Dosage 8 [facility] 00:00:00 Branch DTAP 1999-01-16 Completed [facility] [address] [place] [address] Medical 00:00:00 Branch HIB 4 Dose Schedule 1999-01-16 Completed [facility] of 8 [facility] 00:00:00 Branch Polio (IPV/OPV) 1999-01-16 Completed [facility] 8 [facility] 00:00:00 Branch Hep B, Adol or Pedi 1999-01-16 Completed [facility] of Dosage 8 [facility] 00:00:00 Branch DTAP 1999-01-16 Completed [facility] [address] [place] [address] Medical 00:00:00 Branch HIB 4 Dose Schedule 1999-01-16 Completed [facility] of 8 [facility] 00:00:00 Branch Polio (IPV/OPV) 1999-01-16 Completed [facility] of 8 [facility] 00:00:00 Branch Hep B, Adol or Pedi 1999-01-16 Completed [facility] Dosage 8 [facility] 00:00:00 Branch DTAP 1999-01-16 Completed [facility] [address] Medical 00:00:00 Branch HIB 4 Dose Schedule 1999-01-16 Completed [facility] of 8 [facility] 00:00:00 Branch Polio (IPV/OPV) 1999-01-16 Completed [facility] of 8 [facility] 00:00:00 Branch Hep B, Adol or Pedi 1999-01-16 Completed [facility] Dosage 8 [facility] 00:00:00 Branch DTAP 1999-01-16 Completed [facility] [address] [facility] 00:00:00 Branch HIB 4 Dose Schedule 1999-01-16 Completed [facility] of 8 [facility] 00:00:00 Branch Polio (IPV/OPV) 1999-01-16 Completed [facility] of 8 [facility] 00:00:00 Branch Hep B, Adol or Pedi 1999-01-16 Completed [facility] Dosage 8 [facility] 00:00:00 Branch DTAP 1999-01-16 Completed [facility] [address] [place] [address] Medical 00:00:00 Branch HIB 4 Dose Schedule 1999-01-16 Completed [facility] of 8 [facility] 00:00:00 Branch Polio (IPV/OPV) 1999-01-16 Completed [facility] of 8 [facility] 00:00:00 Branch Hep B, Adol or Pedi 1999-01-16 Completed [facility] Dosage 8 [facility] 00:00:00 Branch DTAP 1999-01-16 Completed [facility] [address] [place] [address] Medical 00:00:00 Branch HIB 4 Dose Schedule 1999-01-16 Completed [facility] of 8 [facility] 00:00:00 Branch Polio (IPV/OPV) 1999-01-16 Completed [facility] of 8 [facility] 00:00:00 Branch Hep B, Adol or Pedi 1999-01-16 Completed [facility] Dosage 8 [facility] 00:00:00 Branch DTAP 1999-01-16 Completed [facility] [address] [facility] 00:00:00 Branch HIB 4 Dose Schedule 1999-01-16 Completed [facility] of 8 [facility] 00:00:00 Branch Polio (IPV/OPV) 1999-01-16 Completed [facility] 8 [facility] 00:00:00 Branch Hep B, Adol or Pedi 1999-01-16 Completed [facility] Dosage 8 [facility] 00:00:00 Branch DTAP 1999-01-16 Completed [facility] [address] 00:00:00 Branch HIB 4 Dose Schedule 1999-01-16 Completed [facility] of 8 [facility] 00:00:00 Branch Polio (IPV/OPV) 1999-01-16 Completed [facility] of 8 [facility] 00:00:00 Branch Hep B, Adol or Pedi 1999-01-16 Completed [facility] Dosage 8 [facility] 00:00:00 Branch DTAP 1999-01-16 Completed [facility] of [address] [place] [address] 00:00:00 Branch HIB 4 Dose Schedule 1999-01-16 Completed [facility] of 8 [facility] 00:00:00 Branch Polio (IPV/OPV) 1999-01-16 Completed [facility] of 8 [facility] 00:00:00 Branch Hep B, Adol or Pedi 1999-01-16 Completed [facility] Dosage 8 [facility] 00:00:00 Branch DTAP 1999-01-16 Completed [facility] of [address] [place] [address] Medical 00:00:00 Branch HIB 4 Dose Schedule 1999-01-16 Completed [facility] of 8 [facility] 00:00:00 Branch Polio (IPV/OPV) 1999-01-16 Completed [facility] 8 [facility] 00:00:00 Branch Hep B, Adol or Pedi 1999-01-16 Completed [facility] Dosage 8 [facility] 00:00:00 Branch Hep B, Adol or Pedi 1998 Completed [facility] Dosage 8 [facility] 00:00:00 Branch Hep B, Adol or Pedi 1998 Completed [facility] 8 [facility] 00:00:00 Branch Hep B, Adol or Pedi 1998 Completed [facility] of Dosage 8 [facility] 00:00:00 Branch Hep B, Adol or Pedi 1998 Completed [facility] Dosage 8 [facility] 00:00:00 Branch Hep B, Adol or Pedi 1998 Completed [facility] Dosage 8 [facility] 00:00:00 Branch Hep B, Adol or Pedi 1998 Completed [facility] Dosage 8 [facility] 00:00:00 Branch Hep B, Adol or Pedi 1998 Completed [facility] Dosage 8 [facility] 00:00:00 Branch Hep B, Adol or Pedi 1998 Completed [facility] Dosage 8 [facility] 00:00:00 Branch Hep B, Adol or Pedi 1998 Completed [facility] Dosage 8 [facility] 00:00:00 Branch Hep B, Adol or Pedi 1998 Completed [facility] of Dosage 8 [facility] 00:00:00 Branch Hep B, Adol or Pedi 1998 Completed [facility] Dosage 8 [facility] 00:00:00 Branch Hep B, Adol or Pedi 1998 Completed [facility] of Dosage 8 [facility] 00:00:00 Branch Hep B, Adol or Pedi 1998 Completed [facility] of Dosage 8 [facility] 00:00:00 Branch Hep B, Adol or Pedi 1998 Completed [facility] of Dosage 8 [facility] 00:00:00 Branch Hep B, Adol or Pedi 1998 Completed [facility] Dosage 8 [facility] 00:00:00 Branch Hep B, Adol or Pedi 1998 Completed [facility] of Dosage 8 [facility] 00:00:00 Branch Hep B, Adol or Pedi 1998 Completed [facility] Dosage 8 [facility] 00:00:00 Branch hep B (ped/adol, 3 1998 Completed Source: Other [facility] 00:00:00 hep B (ped/adol, 3 1998 Completed Source: [facility] 00:00:00 hep B (ped/adol, 3 1998 Completed Source: [facility] 00:00:00 hep B (ped/adol, 3 1998 Completed Source: [facility] 00:00:00 Vital Signs Vital Name Observation Time Observation Value Comments Source Systolic blood 2022-12-21 14:03:00 116 mm[Hg] [facility] pressure [facility] Diastolic blood 2022-12-21 14:03:00 79 mm[Hg] [facility] pressure [facility] Heart rate 2022-12-21 14:03:00 78 /min [facility] Body temperature 2022-12-21 14:03:00 36.33 Aditi [facility] Respiratory rate 2022-12-21 14:03:00 16 /min [facility] Body height 2022-12-21 14:03:00 162.6 cm [facility] Body weight 2022-12-21 14:03:00 117.3 kg [facility] BMI 2022-12-21 14:03:00 44.39 kg/m2 [facility] Systolic blood 2022-12-14 21:34:00 154 mm[Hg] [facility] pressure [facility] Diastolic blood 2022-12-14 21:34:00 95 mm[Hg] [facility] pressure [facility] Heart rate 2022-12-14 21:34:00 108 /min [facility] Body temperature 2022-12-14 21:34:00 36.67 Aditi [facility] Respiratory rate 2022-12-14 21:34:00 18 /min [facility] Body weight 2022-12-14 21:34:00 116.121 kg [facility] BMI 2022-12-14 21:34:00 43.94 kg/m2 [facility] Oxygen saturation in 2022-12-14 21:34:00 98 /min [facility] of Arterial blood by [facility] Systolic blood 2022-12-07 17:13:08 147 mm[Hg] [facility] pressure [facility] Diastolic blood 2022-12-07 17:13:08 100 mm[Hg] [facility] pressure [facility] Heart rate 2022-12-07 17:13:08 97 /min [facility] Body temperature 2022-12-07 17:13:08 36.06 Aditi [facility] Respiratory rate 2022-12-07 17:13:08 17 /min [facility] Oxygen saturation in 2022-12-07 17:13:08 98 /min [facility] of Arterial blood by [facility] Pulse [facility]xim[facility] Body weight 2022-12-07 00:53:00 113.399 kg [facility] BMI 2022-12-07 00:53:00 42.91 kg/m2 [facility] Oxygen saturation in 2022-12-07 01:34:00 99 /min [facility] Arterial blood by [facility] Pulse [facility]xim[facility] Branch Systolic blood 2022-12-07 01:34:00 146 mm[Hg] [facility] pressure [facility] Diastolic blood 2022-12-07 01:34:00 114 mm[Hg] [facility] pressure [facility] Heart rate 2022-12-07 01:34:00 93 /min [facility] Body temperature 2022-12-07 01:34:00 36.22 Aditi [facility] Respiratory rate 2022-12-07 01:34:00 16 /min [facility] Body weight 2022-12-07 01:34:00 116.438 kg [facility] BMI 2022-12-07 01:34:00 44.06 kg/m2 [facility] Systolic blood 2022-12-04 04:45:26 125 mm[Hg] [facility] pressure [facility] Diastolic blood 2022-12-04 04:45:26 63 mm[Hg] [facility] pressure [facility] Heart rate 2022-12-04 04:45:26 79 /min [facility] Respiratory rate 2022-12-04 04:45:26 19 /min [facility] Oxygen saturation in 2022-12-04 04:45:26 98 /min [facility] Body temperature 2022-12-04 02:26:00 36.67 Aditi [facility] Body weight 2022-12-04 02:26:00 113.399 kg [facility] BMI 2022-12-04 02:26:00 42.91 kg/m2 [facility] Systolic blood 2022-11-18 23:00:00 130 mm[Hg] [facility] pressure [facility] Diastolic blood 2022-11-18 23:00:00 95 mm[Hg] [facility] of pressure [facility] Heart rate 2022-11-18 23:00:00 123 /min [facility] Body temperature 2022-11-18 23:00:00 36.06 Aditi [facility] Respiratory rate 2022-11-18 23:00:00 18 /min [facility] Body weight 2022-11-18 23:00:00 112.3 kg [facility] BMI 2022-11-18 23:00:00 42.50 kg/m2 [facility] Oxygen saturation in 2022-11-18 23:00:00 96 /min [facility] Arterial blood by [facility] Pulse oximetry Branch Systolic blood 2022-07-21 13:45:00 138 mm[Hg] [facility] of pressure [facility] Diastolic blood 2022-07-21 13:45:00 82 mm[Hg] [facility] of pressure [facility] Heart rate 2022-07-21 13:45:00 80 /min [facility] Respiratory rate 2022-07-21 13:45:00 16 /min [facility] Oxygen saturation in 2022-07-21 13:45:00 96 /min [facility] Body temperature 2022-07-21 12:01:00 36.72 Aditi [facility] Body weight 2022-07-21 12:01:00 117.935 kg Universi ty [facility] BMI 2022-07-21 12:01:00 44.63 kg/m2 [facility] ty [facility] Systolic blood 2022-06-03 19:11:00 158 mm[Hg] [facility] pressure [facility] Diastolic blood 2022-06-03 19:11:00 92 mm[Hg] [facility]ive [facility]ity of pressure [facility] Heart rate 2022-06-03 19:04:00 95 /min [facility] ty [facility] Body temperature 2022-06-03 19:04:00 36.22 [facility] 2022-06-03 19:04:00 18 [facility] 2022-06-03 19:04:00 162.6 cm [facility] ty [facility] Body weight 2022-06-03 19:04:00 117.572 kg [facility]i ty [facility] BMI 2022-06-03 19:04:00 44.49 kg/m2 Universi [facility] Body height 2022-09-07 10:02:00 162.56 cm [facility] Body Weight 2022-09-07 10:02:00 125.373 kg [facility] Intravascular 2022-09-07 10:02:00 122 mm[Hg] [facility] 2022-09-07 10:02:00 83 mm[Hg] [facility] Heart Rate 2022-09-07 10:02:00 84 /min [facility] Body Temperature 2022-09-07 10:02:00 36.50 Aditi [facility] Respiratory rate 2022-09-07 10:02:00 18 /min [facility] Body mass index 2022-09-07 10:02:00 47.44 kg/m2 [facility] SaO2 % Bld[facility] Pulse[facility] 2022-09-07 10:02:00 97 /min [facility] 2022-06-17 11:16:00 141 mm[Hg] [facility] 2022-06-17 11:16:00 87 mm[Hg] [facility] Heart Rate 2022-06-17 11:16:00 96 /min [facility] Body height 2022-06-17 11:01:00 162.56 cm [facility] Wellness Body Weight 2022-06-17 11:01:00 118.297 kg [facility] Intravascular 2022-06-17 11:01:00 166 mm[Hg] [facility] Systolic Wellness Intravascular 2022-06-17 11:01:00 86 mm[Hg] [facility] Diastolic Wellness Heart Rate 2022-06-17 11:01:00 126 /min [facility] Body Temperature 2022-06-17 11:01:00 36.50 Ad[facility] Wellness Respiratory rate 2022-06-17 11:01:00 19 /min [facility] Wellness Body mass index 2022-06-17 11:01:00 44.77 kg/m2 [facility] SaO2 % BldA PulseOx 2022-06-17 11:01:00 100 /min [facility] Procedures Procedure Date / Time Performing Clinician Source Performed TOTAL BETA HCG ASSAY 2022-12-21 14:29:00 Qing Morris [facility] POCT TEST 2022-12-21 14:06:00 Qing Morris [facility] CONSENT/REFUSAL FOR 2022-12-14 20:28:42 Doctor Unasskelley [facility] DIAGNOSIS AND TREATMENT [place] [facility] CT ANGIOGRAM NECK 2022-12-07 14:58:34 Lisa Quezada [facility] POCT TEST 2022-12-07 02:46:00 Thalia South [facility] ETHANOL 2022-12-07 02:45:00 [place] [facility] COVID-19 (ID NOW RAPID 2022-12-07 02:45:00 Thalia South [facility] TESTING) Medical Branch LAB ONLY COVID 2022-12-07 02:45:00 [place] [facility] URINE DRUG (IMMUNOASSAY) 2022-12-07 02:45:00 Thalia South [facility] SCREEN W/O REFLEX CONSENT/REFUSAL FOR 2022-12-07 00:43:20 Doctor Unassigned, [facility] DIAGNOSIS AND TREATMENT [place] [facility] CT ABDOMEN PELVIS W 2022-12-04 04:04:24 Shilpa Tripp [facility] CONTRAST [facility] CT THORAX W CONTRAST 2022-12-04 04:04:24 Shilpa Tripp [facility] CREATINE KINASE 2022-12-04 02:50:00 Shilpa Tripp [facility] TEST, SERUM 2022-12-04 02:50:[address] [facility] COMP. METABOLIC PANEL 2022-12-04 02:50:00 Shilpa Tripp [facility] ([id number]) [facility] ETHANOL 2022-12-04 02:50:00 Shilpa Tripp [facility] URINE DRUG (IMMUNOASSAY) 2022-12-04 02:50:00 Shilpa Tripp [facility] DRUG Medical [facility] SCREEN CBC WITH DIFF 2022-12-04 02:50:00 Shilpa Tripp [facility] POCT MOLECULAR FLU 2022-11-18 23:11:00 Unknown, Attending [facility] POCT MOLECULAR STREP 2022-11-18 23:08:00 Unknown, Attending [facility] CONSENT/REFUSAL FOR 2022-11-18 22:52:15 Doctor Unassigned, [facility] DIAGNOSIS AND TREATMENT [place] [facility] Established Patient 2022-09-07 00:00:00 [facility] Office Visit-Level Three Wellnes s HCG (human Chorionic 2022-09-07 00:00:00 [facility] Wellness Quantitative, Serum Urine Test 2022-09-07 00:00:00 [facility] Influenza virus A+B Ag 2022-09-07 00:00:00 [facility] EKG-12 LEAD 2022-07-21 14:35:24 Vinh [facility] MAGNESIUM 2022-07-21 13:38:00 Vinh [facility] TEST, SERUM 2022-07-21 13:38:[address] [facility] BASIC METABOLIC PANEL 2022-07-21 13:38:00 Long Justice [facility] (NA, K, CL, CO2, GLUCOSE, Medica l Branch BUN, CREATININE, CA) XR CHEST 2 VW 2022-07-21 13:20:00 Vinh [facility] TROPONIN I 2022-07-21 12:25:00 Vinh [facility] CBC WITH DIFF 2022-07-21 12:25:00 Vinh [facility] D-DIMER 2022-07-21 12:25:00 Vinh [facility] N-TERMINAL PRO-BNP 2022-07-21 12:25:00 Long Justice [facility] CONSENT/REFUSAL FOR 2022-07-21 12:19:51 Doctor Unasskelley, [facility] DIAGNOSIS AND TREATMENT [place] [facility] Urine Test 2022-06-17 00:00:00 [facility] HCG (human Chorionic 2022-06-17 00:00:00 [facility] Quantitative, Serum Established Patient 2022-06-17 00:00:00 [facility] Visit-Level [place] [facility] POCT TEST 2022-06-03 19:12:00 Ab Joy [facility] DISCLOSURE AND CONSENT, 2022-06-03 05:01:00 Doctor Unassigned, [facility] MEDICAL AND SURGICAL [place] [facility] nc PROCEDURES Established Patient 2021-04-14 00:00:00 [facility] Office Visit-Level [place] [facility] Medicaid Encounter Rate 2021-04-14 00:00:00 [facility] Health and Wellness Nominal Fee 2021-02-10 00:00:00 [facility] th and Wellness Established Patient 2021-02-10 00:00:00 [facility] Visit-Level [place] [facility] Nominal Fee 2021-01-14 00:00:00 [facility] th and Wellness Established Patient 2021-01-14 00:00:00 [facility] Visit-Level [facility] Hemoglobin A1C 2021-01-14 00:00:00 [facility] and Wellness ASSAY OF FREE THYROXINE 4 2021-01-14 00:00:00 [facility] Thyroid Stimulating 2021-01-14 00:00:00 [facility] and Hormone (TSH) Wellness Vitamin D 2021-01-14 00:00:00 [facility] th and Wellness Lipid Panel 2021-01-14 00:00:00 [facility] th and Wellness Comprehensive Metabolic 2021-01-14 00:00:00 [facility] Panel Wellness Vitamin B-12 2021-01-14 00:00:00 [facility] th and Wellness Ferritin 2021-01-14 00:00:00 [facility] th and Wellness Folic Acid (Folate) 2021-01-14 00:00:00 [facility] Iron binding capacity 2021-01-14 00:00:00 [facility] Iron 2021-01-14 00:00:00 [facility] th and Wellness Complete Blood Count 2021-01-14 00:00:00 [facility] (CBC) Wellness Reticulocyte Count 2021-01-14 00:00:00 [facility] and Wellness Nominal Fee 2020-11-19 00:00:00 [facility] th and Wellness Re-Evaluation 2020-11-19 00:00:00 [facility] Limited, Problem Focused Wellne ss Intraoral 2020-11-19 00:00:00 [facility] Periapical First Film Wellness Nominal Fee 2020-10-21 00:00:00 [facility] Wellness Intraoral 2020-10-21 00:00:00 [facility] Periapical First [place] Wellness Limited Oral Evaluation 2020-10-21 00:00:00 [facility] Problem Focused Wellness Nominal Fee 2019-10-23 00:00:00 [facility] Intraoral 2019-10-23 00:00:00 [facility] Periapical First Film Wellness Limited Oral Evaluation 2019-10-23 00:00:00 [facility] Problem Focused Wellness Resin-Based Composite Two 2019-10-23 00:00:00 [facility] Surfaces, Posterior Wellness Nominal Fee 2019-10-10 00:00:00 [facility] Wellness Prophylaxis 2019-10-10 00:00:00 [facility] Adult Wellness Topical Fluoride Varnish; 2019-10-10 00:00:00 [facility] Therapeutic Application Wellness Nominal Fee 2019-08-28 00:00:00 [facility] Wellness Gonadotropin, chorinic 2019-08-28 00:00:00 [facility] Health and (hCG); quantitive Wellness Complete Blood Count 2019-08-28 00:00:00 [facility] (CBC) Wellness Syphilis Test, 2019-08-28 00:00:00 [facility] qualitative Wellness Rubella Antibody Titer 2019-08-28 00:00:00 [facility] Antibody Screen, RBC, 2019-08-28 00:00:00 [facility] and each serum Wellness Blood typing; ABO 2019-08-28 00:00:00 [facility] Wellness Rh (D) 2019-08-28 00:00:00 [facility] Wellness Hepitits B surface 2019-08-28 00:00:00 [facility] and antigen Wellness HIV-1 AG W/HIV-1 & HIV-2 2019-08-28 00:00:00 [facility] AB Wellness Urine Test 2019-08-28 00:00:00 [facility] Established Patient 2019-08-28 00:00:00 [facility] Office Visit-Level Three Wellnes s Nominal Fee 2019-07-16 00:00:00 [facility] Established Patient 2019-07-16 00:00:00 [facility] Office Visit-Level Three Wellnes s Urine Test 2019-07-16 00:00:00 [facility] Nominal Fee 2019-07-04 00:00:00 [facility] Wellness Comprehensive Oral 2019-07-04 00:00:00 [facility] and Evaluation Wellness [place] Established Caries risk assessment, 2019-07-04 00:00:00 [facility] and moderate risk Wellness Panoramic Film 2019-07-04 00:00:00 [facility] Nominal Fee 2019-05-07 00:00:00 [facility] Urine Test 2019-05-07 00:00:00 [facility] Established Patient 2019-05-07 00:00:00 [facility] Office Visit-Level Three Wellnes s Nominal Fee 2018-11-02 00:00:00 [facility] Established Patient 2018-11-02 00:00:00 [facility] Office Visit-Level Two Wellness Urine Test 2018-11-02 00:00:00 [facility] Urinalysis, Auto W/O 2018-11-02 00:00:00 [facility] Scope Wellness New Patient Office 2013-02-14 00:00:00 [facility] and Visit-Level Two Wellness Encounters Start End Encounter Admission Attending Care Care Encounter Source Date/Time Date/Time Type Type Clinicians Facility Department ID 2021-07-20 Emergency [facility] [id number] Univers 03:01:43 ity of [facility] 2021-07-18 Emergency [facility] [id number] Univers 13:16:52 ity of [facility] 2021-07-18 Emergency [facility] [id number] Univers 13:00:00 ity of [facility] 2021-07-16 Emergency [facility] [id number] Univers 21:43:51 ity of [facility] 2021-07-16 Emergency [facility] [id number] Univers 14:50:44 ity of [facility] 2021-07-15 Emergency [facility] [id number] Univers 12:35:19 ity of [facility] 2022-12-30 2022-12-30 Outpatient Shaneka MORRIS [facility] [id number] Univers 10:30:00 10:30:00 QING ity of [facility] 2022-12-26 2022-12-26 Telephone ACOSTA Morris 1.2.840.114 [id number] Univers 00:00:00 00:00:00 [facility] 350.1.13.10 i [place] [id number] [address] 2022-12-21 2022-12-21 Nurse Visit/Fp, [facility] Nurse UNIVERSI T 1.2.840.114 [id number] Univers 10:30:00 10:30:[address] [facility] 350.1.13.10 it[place] [id number] [address] 2022-12-21 2022-12-21 Initial ACOSTA Morris [id number] Univers 09:30:00 09:30:40 [facility] 350.1.13.10 ity of Visit [place] [id number] [address] 2022-12-21 2022-12-21 Outpatient Shaneka MORRIS [facility] [id number] Univers 09:00:00 09:00:00 QING ity of [facility] 2022-12-14 2022-12-14 [facility] [id number] Univers 16:36:00 17:14:00 ABIGAIL ity o f [facility] 2022-12-14 2022-12-14 Emergency Mallory, TRAUMA [id number] Univers 16:36:00 17:14:00 [facility] 350.1.13.10 i ty of [facility] 4.2.7.2.[place] [id number] [facility] [address] 2022-12-08 2022-12-08 Nurse Cherry Zarate 1.2.840.114 [id number] Univers 00:00:00 00:00:00 Triage LUXOR 350.1.13.10 it y of [facility] 4.2.7.2.686 [place] [id number] [facility] [address] 2022-12-06 2022-12-07 Emergency X LISA QUEZADA [facility] ERT [id number] Univers 19:54:00 14:55:00 LISA QUEZADA it of [facility] 2022-12-06 2022-12-07 Emergency Thalia South R TRAUMA 1.2.840.1 [id number] Univers 19:54:00 14:55:00 Shilpa Tripp [facility] 350.1.13.10 ity of Lisa Quezada 4.2.7.2.686 [place] [id number] [facility] [address] 2022-12-06 2022-12-06 Outpatient R ELVIRA [facility] [id number] Univers 19:15:00 20:40:03 GILDA stuart o f [facility] 2022-12-06 2022-12-06 Nurse Nurse, Aramis Adult Urgent [facility] 1. 2.840.114 [id number] Univers 19:15:00 19:30:00 Visit Unknown, Attending ISLAND 350.1.13.10 ity of Gilda Harris PEDIATRIC 4.2.7.2.686 [facility] [id number] [facility] [address] 2022 2022-12-04 Emergency [facility] [id number] Univers 21:23:00 00:08:00 SHILPA ity of [facility] 2022 2022-12-04 Emergency Tripp, TRAUMA [id number] Univers 21:23:00 00:08:00 Shilpa T [place] 350.1.13.10 it[place] [id number] [facility] [address] 2022-11-24 2022-11-24 Telephone [facility] [id number] Univers 00:00:00 00:00:00 Manan [place] 350.1.13.10 it y of P[place]IC [place] [id number] [facility] [address] 2022-11-23 2022-11-23 Telephone [facility] [id number] Univers 00:00:00 00:00:00 Manan [place] 350.1.13.10 it y of P[place] [id number] [facility] [address] 2022-11-18 2022-11-18 Urgent Nathaniel [facility] 1.2.840.114 [id number] Univers 16:45:00 17:00:00 Care Unknown, Seth [place] 350.1.13.10 ity of P[place].2.[place] [id number] [facility] [address] 2022-11-18 2022-11-18 Outpatient [facility] [id number] Univers 16:45:00 16:45:00 MANAN ity of [facility] 2022-11-18 2022-11-18 Orders Doctor MANAN 1.2.840.114 [id number] Univers 00:00:00 00:00:00 Only Unassigned, VIANEY 350.1.13.10 ity of [place] [facility] 4.2.7.2.686 [place] [id number] [facility] [address] 2022-09-10 2022-09-10 Outpatient SAVANNA Hamm [facility] [id number] [facility] 09:24:00 09:24:00 [facility] 2022-09-10 2022-09-10 Outpatient SAVANNA Hamm [id number] [facility] 09:24:00 09:24:00 Paresh -44ba-85b [id number] Health [id number] a nd [id number] [id number] Que 2022-09-07 2022-09-07 Outpatient Noris Amy [facility] [id number] [facility] 10:00:00 10:00:00 [facility] and Que 2022-09-07 2022-09-07 [facility] SAVANNA Hamm [id number] [facility] 10:00:00 10:00:00 d Patient Paresh [id number] Health Office [id number] a nd Visit-Leve 015 [id number] [facility] s 2022-07-21 2022-07-21 Emergency X LONG JUSTICE [facility] ERT [id number] Univers 07:01:00 09:58:00 RASHIDAPRIL LONG ity [facility] 2022-07-21 2022-07-21 Emergency Dalmedo, TRAUMA 1.2.840.114 [id number] Univers 07:01:00 09:58:00 [facility] 350.1.13.10 it [place] [id number] [address] 2022-06-19 2022-06-19 Outpatient Noris, Amy [facility] [id number] [facility] 18:07:00 18:07:00 [facility] Que 2022-06-19 2022-06-19 Outpatient SAVANNA Hamm [id number] [facility] 18:07:00 18:07:00 Paresh [id number] Health [id number] a nd [id number] [id number] Que 2022-06-17 2022-06-17 Outpatient Noris [facility] [id number] [facility] 10:40:00 10:40:00 Paresh Mejia and Que s 2022-06-17 2022-06-17 Morris Hamm, SAVANNA [id number] [facility] 10:40:00 10:40:00 d Patient Paresh [id number] Health Office [id number] a nd Visit-[facility] [id number] Blairsarah leta linda Three s 2022-06-03 2022-06-03 Office Pgy1 UNIVERSIT 1.2.436.320 [id number] Univers 14:00:00 15:58:02 Visit Ab Joy [facility] 350.1.13.10 ity of [facility] 4.2.7.2.[place] [id number] [facility] [address] 2022-06-03 2022-06-03 Outpatient R ROSA [facility] [id number] Univers 14:00:00 15:58:02 AB [facility] 2022-06-03 2022-06-03 Outpatient R ROSA [facility] [id number] Univers 14:00:00 14:00:00 [facility] 2022-06-03 2022-06-03 Orders Doctor MANAN 1.2.840.114 [id number] Univers 00:00:00 00:00:00 Only Unassigned, VIANEY 350.1.13.10 ity of [place] [facility] 4.2.7.2.686 [place] [id number] [facility] [address] 2022-05-18 2022-05-18 Outpatient R [facility] [id number] Univers 15:30:00 15:30:00 ity [facility] 2022-05-05 2022-05-07 Outpatient X ALESSANDRO SANDOVAL, [facility] [id number] Univers 08:35:00 19:00:00 TRACEY ity [facility] 2022-05-05 2022-05-07 Emergency Dylon Giron 1.2.840.1 [id number] Univers 08:35:00 19:00:00 Atkinson, Alvah R VIANEY 350.1.13.10 ity of Tracey Francois [facility] 4.2.7.2.68 6 [place] [id number] [facility] [address] 2022-05-02 2022-05-02 Telephone Gavino Phelps UNIVERSIT 1.2.840.114 [id number] Univers 00:00:00 00:00:00 Y HEALTH 350.1.13.10 i ty of CL[place]ICS [place] [id number] [facility] [address] 2022-04-29 2022-04-29 Orders Doctor MANAN 1.2.840.114 [id number] Univers 00:00:00 00:00:00 Only Unassigned, VIANEY 350.1.13.10 ity of [place] [facility] 4.2.7.2.686 [place] [id number] [facility] [address] 2022-04-27 2022-04-27 Outpatient [facility] [id number] Univers 16:00:00 16:00:00 MICHAEL ity [facility] 2022-04-04 2022-04-04 Outpatient R [facility] [id number] Univers 09:29:17 23:59:00 AMANDA ity [facility] 2022-04-04 2022-04-04 [facility] 1.2.840.114 [id number] Univers 09:29:17 23:59:00 Encounter Amanda PRIMARY 350.1.13.10 ity of [place] [id number] Ut dical [address] 2022-04-04 2022-04-04 Office [facility] 1.2.840.114 [id number] Univers 09:20:00 09:40:00 Visit Amanda PRIMARY 350.1.13.10 it y of C[place] [id number] Ut dical [address] 2022-04-04 2022-04-04 Outpatient R [facility] [id number] Univers 09:20:00 09:20:00 AMANDA ity [facility] 2022-03-07 2022-03-07 Emergency X ZOYA, [facility] ERT [id number] Univers 13:55:00 15:22:00 MARIO ity [facility] 2022-03-07 2022-03-07 Emergency Zoya, TRAUMA 1.2.840.114 [id number] Univers 13:55:00 15:22:00 Mario B CENTER 350.1.13.10 it [place] [id number] [facility] [address] 2022-03-07 2022-03-07 Outpatient R [facility] [id number] Univers 15:20:00 15:20:00 AMANDA ity [facility] 2022-02-21 2022-02-21 Outpatient R [facility] [id number] Univers 08:00:00 08:00:00 AMANDA ity [facility] 2022-02-21 2022-02-21 Outpatient R [facility] [id number] Univers 08:00:00 08:00:00 AMANDA ity [facility] 2022-02-18 2022-02-18 Emergency X RODRIGUEZ, [facility] ERT [id number] Univers 10:21:00 12:06:00 KASSY ity [facility] 2022-02-18 2022-02-18 Emergency Rodriguez, TRAUMA [id number] [id number] Univers 10:21:00 12:06:00 Kassy R CENTER 350.1.13.10 it [place] [id number] [facility] [address] 2022-02-18 2022-02-18 Letter Betzaida Hernandez 1.2.840.114 [id number] Univers 00:00:00 00:00:00 (Out) VIANEY 350.1.13.10 it y of HOSPITAL 4.2.7.2.686 [place] [id number] [facility] [address] 2022-02-17 2022-02-17 Telephone Pcp, [facility] 1.2.498.197 [id number] Univers 00:00:00 00:00:00 Patient PRIMARY 350.1.13.10 it y of Does Not CARE 4.2.7.2.686 [place] Have A PAVILLION [id number] Me dical [address] 2022-02-14 2022-02-15 Emergency [facility] [id number] Univers 23:22:00 04:12:00 GABRIEL ity [facility] 2022-02-14 2022-02-15 Emergency Su, TRAUMA [id number] Univers 23:22:00 04:12:00 Gabriel [facility] 350.1.13.10 it[place] [id number] [facility] [address] 2022-02-14 2022-02-15 Emergency [facility] [id number] Univers 23:22:00 04:12:00 GABRIEL ity [facility] 2022-02-15 2022-02-15 Telephone [facility] 1.2.840.114 [id number] Univers 00:00:00 00:00:00 Amanda PRIMARY 350.1.13.10 it y of [place] [id number] Ut dical [address] 2022-01-11 2022-01-12 Emergency [facility] [id number] Univers 18:55:00 00:04:00 SHILPA ity [facility] 2022-01-11 2022-01-12 Emergency Faulconer, TRAUMA 1.2.840.114 [id number] Univers 18:55:00 00:04:00 [facility] 350.1.13.10 it [place] [id number] [facility] [address] 2022-01-11 2022-01-11 Outpatient R ADDI [facility] [id number] Univers 18:00:00 18:20:00 HEIDI pantojay [facility] 2022-01-11 2022-01-11 Nurse Nurse, Aramis Adult Urgent [facility] 1. 2.840.114 [id number] Univers 18:00:00 18:20:00 Visit Unknown, Attending ISLAND 350.1.13.10 ity of Add[place], Heidi A PEDIATRIC 4.2.7.2.686 [facility] [id number] [facility] [address] 2021-12-18 2021-12-18 Emergency EM MAI FariasMN MEENAKSHI [id number] [facility] 14:37:00 16:10:00 Sarahi 67 [facility] 2021-12-06 2021-12-06 Outpatient SAVANNA Hamm CHW [id number] [place] 16:46:00 16:46:00 [facility] 2021-12-02 2021-12-02 Orders Doctor MANAN 1.2.840.114 [id number] Univers 00:00:00 00:00:00 Only Unassigned, VIANEY 350.1.13.10 ity of [place] [facility] 4.2.7.2.686 [place] [id number] [facility] [address] 2021-11-01 2021-11-01 Outpatient Shaneka FELICIANO [facility] [id number] Univers 13:00:00 14:00:43 VARSHA daily [facility] 2021-11-01 2021-11-01 Office Jennifer Larry [facility] 1.2.840.114 [id number] Univers 13:00:00 14:00:43 Visit Varsha Feliciano 350.1.13.10 ity of [place] [id number] Med ical LUCAS [address] CLINIC 2021-11-01 2021-11-01 Outpatient Shaneka FELICIANO [facility] [id number] Univers 13:00:00 14:00:43 VARSHA daily [facility] 2021-10-22 2021-10-22 Outpatient SAVANNA Hamm W [id number] [facility] 14:53:00 14:53:00 [facility] 2021-09-20 2021-09-20 [facility] 1.2.840.114 [id number] Univers 13:42:27 23:59:00 Encounter Manan BAILYE 350.1.13.10 it[place] [id number] [facility] [address] [place] [address] 2021-09-20 2021-09-20 Outpatient R MICHAEL, [facility] [id number] Univers 13:42:27 23:59:00 MANAN stuart [facility] 2021-09-20 2021-09-20 Outpatient R MICHAEL, [facility] [id number] Univers 13:30:00 14:27:46 MANAN toya [facility] 2021-09-20 2021-09-20 Office [facility] [id number] Univers 13:30:00 14:27:46 Visit Manan PRIMARY 350.1.13.10 it y [place] [id number] [facility] [address] 2021-09-09 2021-09-09 Emergency EM DarkMaggie HCACL TERS [id number] [facility] 01:56:00 04:33:00 69 [facility] 2021-09-01 2021-09-01 Outpatient R ANGEL LUIS LAIRD [facility] [id number] Univers 08:00:00 08:00:00 toya [facility] 2021-08-31 2021-08-31 Pre Visit DAYAMI AmbroseSarah 1.2.163.677 [id number] Univers 00:00:00 00:00:00 Outreach Lenoel Sam LATRICE 350.1.13.10 i ty of [place] [id number] [facility] [address] 2021-07-26 2021-07-26 Outpatient R FAILLACE, [facility] [id number] Univers 14:00:00 14:40:25 MANAN stuart [facility] 2021-07-26 2021-07-26 [facility] [id number] Univers 13:33:17 14:40:25 Visit Manan PRIMARY 350.1.13.10 it y [place] [id number] [facility] [address] 2021-07-26 2021-07-26 Outpatient R FAILLACE, [facility] [id number] Univers 14:00:00 14:00:00 MANAN [facility] 2021-07-24 2021-07-24 Emergency X IBIKUNLE, [facility] ERT [id number] Univers 16:23:00 17:57:00 ANNEL [facility] 2021-07-24 2021-07-24 Emergency Ibikunle, [place] 1.2.840.114 [id number] Univers 16:23:00 17:57:00 [facility] 350.1.13.10 [place] [id number] [address] 2021-07-24 2021-07-24 Emergency X IBIKUNLE, [facility] ERT [id number] Univers 16:23:00 17:57:00 [facility] 2021-06-28 2021-06-28 [facility] [id number] Univers 16:00:00 16:00:00 JUAN [facility] 2021-06-18 2021-06-18 Emergency Mallory, [place] 1.2.102.994 [id number] Univers 10:19:00 13:22:00 [facility] 350.1.13.10 i ty of [place] [id number] [address] 2021-04-14 2021-04-14 Outpatient SAVANNA Hamm [id number] [facility] 17:04:00 17:04:00 [facility] 2021-04-14 2021-04-14 [facility]NA Hamm [id number] [id number] [facility] 17:04:00 17:04:00 [facility] 10-443c-8eb 67c-4edf -a Health Office [id number] a nd [facility] f1d3cc Stephani gillette l Three s 2021-02-11 2021-02-11 Telephone Gavino Phelps [facility]ERS[facility] 1.2.840.114 [id number] 00:00:00 00:00:00 [facility] 350.1.13.10 [facility] 4.2.7.2.686 [id number] 113 2021-02-11 2021-02-11 Telephone Gavino Phelps 1.2.840.114 [id number] [facility] 00:00:00 00:00:00 [facility] 350.1.13.10 i ty of CLINICS 4.2.7.2.686 Francisco garcia [id number] [facility] [address] 2021-02-10 2021-02-10 Outpatient SAVANNA Hamm [facility] [id number] [facility] 13:30:00 13:30:00 [facility] 2021-02-10 2021-02-10 SAVANNA Taylor [id number] [id number] [facility] 13:30:00 13:30:00 d Patient Tandajaneen -443c-8eb 5e4-507b -b Health Office [id number] a nd Visit-Leve 015 e304eb Stephani linda George s 2021-01-16 2021-01-16 Outpatient SAVANNA Hamm Amy [id number] [facility] 10:34:00 10:34:00 [facility] 2021-01-14 2021-01-14 Outpatient SAVANNA Hamm Amy [id number] [facility] 15:00:00 15:00:00 [facility] 2021-01-14 2021-01-14 SAVANNA Taylor [id number] [id number] [facility] 15:00:00 15:00:00 d Patient Tandace 443c-8eb 5r9-17n1 -b Health Office [id number] a nd Visit-Leve 015 [id number] Stephani linda George s 2021-01-13 2021-01-13 Outpatient SAVANNA Hamm Amy [id number] [facility] 14:50:00 14:50:00 [facility] 2020-12-31 2021-01-01 Emergency Penelope, [place] 1.2.572.845 [id number] 23:44:00 05:09:00 [facility] 350.1.13.10 4.2.7.2.686 [id number] 2020-12-31 2021-01-01 Emergency Penelope, [place] 1.2.389.669 [id number] Univers 23:44:00 05:09:00 [facility] 350.1.13.10 [place] [id number] [facility] [address] 2020-12-31 2020-12-31 Outpatient SAVANNA Hamm CHW [id number] [facility] 11:36:00 11:36:00 [facility] 2020-12-30 2020-12-31 Emergency Su, [place] 1.2.525.468 [id number] 23:25:00 02:31:00 [facility] 350.1.13.10 4.2.7.2.686 [id number] 2020-12-30 2020-12-31 Emergency Su, [place] [id number] [id number] [facility] 23:25:00 02:31:00 [facility] 350.1.13.10 [place] [id number] [facility] [address] 2020-12-08 2020-12-08 Patient Yvan MIEMA 1.2.840.114 [id number] Univers 00:00:00 00:00:00 Outreach Henry PRIMARY 350.1.13.10 i ty of [place] [id number] Ut dicme [address] 2020-12-08 2020-12-08 Patient Yvan MIEMA 1.2.840.114 [id number] 00:00:00 00:00:00 Outreach Henry PRIMARY 350.1.13.10 [place] CARE 4.2.7.2.686 PAVILLION [id number] [facility] 2020-11-19 2020-11-19 Outpatient SAVANNA Meneses CHW [address] [place] [address] 13:00:00 13:00:00 [facility] 2020-11-19 2020-11-19 Outpatient SAVANNA Meneses [id number] [place] 13:00:00 13:00:00 Kena 27-44ba-85b [id number] Health [id number] a nd 9af 15f0cf Que 2020-10-22 2020-10-22 Office Gavino Phelps [facility] 1.2.840.114 [id number] Univers 13:22:26 15:05:56 Visit Y HEALTH 350.1.13.10 i ty of [place] [id number] [address] 2020-10-22 2020-10-22 Office Gavino Phelps [facility] 1.2.840.114 [id number] 13:22:26 15:05:56 Visit Y HEALTH 350.1.13.10 CLINICS 4.2.7.2.686 [id number] [facility] 2020-10-22 2020-10-22 Outpatient R GAVINO PHELPS [facility] [id number] Univers 13:30:00 13:30:00 ity [facility] 2020-10-21 2020-10-21 Outpatient SAVANNA García W [id number] [facility] 16:00:00 16:00:00 [facility] 2020-10-21 2020-10-21 Outpatient SAVANNA García [id number] [facility] 16:00:00 16:00:00 [facility] 10-443c-8eb u6r-87le-[address] [facility] [id number] a nd 015 a8ddff [facility] 2020-10-12 2020-10-12 Laboratory Only, Pcp Test [facility] 1.2.840. 114 [id number] Univers 14:36:36 14:51:36 Only Miguel García PRIMARY 350.1.13.10 it[place] [id number] [address] 2020-10-12 2020-10-12 Outpatient R [facility] [id number] Univers 14:30:00 14:30:00 ity [facility] 2020-09-24 2020-09-24 Outpatient R GAVINO PHELPS [facility] [id number] Univers 12:45:00 12:45:00 ity [facility] 2020-08-10 2020-08-10 Hospital Radha ELICEOIT 1.2.840.114 [id number] Univers 15:27:48 23:59:00 Encounter Aleena Y HEALTH 350.1.13.10 ity of CL[place] [id number] [facility] [address] 2020-08-10 2020-08-10 Outpatient R RADHA [facility] [id number] Univers 15:30:00 15:30:00 ALEENA ity [facility] 2020-08-10 2020-08-10 Office Radha ELICEO 1.2.753.962 [id number] Univers 14:34:52 15:18:01 Visit Aleena Y HEALTH 350.1.13.10 ity of CL[place] [id number] [facility] [address] 2020-08-10 2020-08-10 Outpatient R RADHA [facility] [id number] Univers 14:30:00 14:30:00 ALEENA ity [facility] 2020-08-07 2020-08-07 Out[facility] [id number] Univers 15:00:00 15:00:00 QING ittoya [facility] 2020-07-31 2020-07-31 Office Gavino Phelps UNIVERS 1.2.840.114 [id number] Univers 14:40:38 15:29:34 Visit Y HEALTH 350.1.13.10 i ty of [place] [id number] [address] 2020-07-31 2020-07-31 Outpatient R GAVINO PHELPS [facility] [id number] Univers 14:30:00 14:30:00 ity [facility] 2020-07-31 2020-07-31 Orders Doctor HINKLE 1.2.840.114 [id number] Univers 00:00:00 00:00:00 Only Unassigned, VIANEY 350.1.13.10 ity of [place] [facility] 4.2.7.2.686 [place] as [id number] [facility] [address] 2020-06-24 2020-06-25 Emergency Kaale, [place] 1.2.297.926 [id number] Univers 20:57:00 01:46:00 [place] [facility]ENTER 350.1.13.10 [place] [id number] [facility] [address] 2020-05-17 2020-05-17 Emergency [place], TRAUMA 1.2.840.114 [id number] Univers 04:13:00 06:12:00 Tresa Clarke CENTER 350.1.13.10 [place] [id number] [facility] [address] 2020-05-06 2020-05-06 Outpatient R [facility] [id number] Univers 10:00:00 10:00:00 ity of [facility] 2020-05-06 2020-05-06 Laboratory Nurse, Gal Pcp Suraj saravia [facility] 1.2.840.114 [id number] Univers 09:44:34 09:59:34 Only Glendy Gibbons PRIMARY 350.1.13.10 ity of [place] [id number] [address] 2020-05-06 2020-05-06 Telephone Nguyen HINKLE 1.2.840.114 [id number] Univers 00:00:00 00:00:00 Afia graham 350.1.13.10 ity of HOSPITAL 4.2.7.2.686 [place] [id number] [facility] [address] 2020-05-03 2020-05-03 Outpatient R [facility] [id number] Univers 15:00:00 15:00:00 ity of [facility] 2020-01-30 2020-01-30 Outpatient SAVANNA Cortez mAy [id number] [facility] 16:56:00 16:56:00 [facility] 2019-11-20 2019-11-20 Telephone Fuentes [facility] 1.2.840.114 [id number] Univers 00:00:00 00:00:00 , Mica PRIMARY 350.1.13.[address] [facility] 4.2.7.2.686 Francisco [facility]CH[facility] [id number] [address] 2019-10-23 2019-10-23 Outpatient SAVANNA García Amy [id number] [facility] 15:30:00 15:30:00 [facility] 2019-10-23 2019-10-23 Outpatient SAVANNA García [id number] [id number] [facility] 15:30:00 15:30:00 [facility] 10-443c-8eb w29-31h5-x Health [id number] a nd 015 [id number] [facility] 2019-10-10 2019-10-10 Outpatient SAVANNA Dupree [id number] [facility] 16:00:00 16:00:[facility] 2019-10-10 2019-10-10 Outpatient SAVANNA Dupree [id number] [facility] 16:00:00 16:00:00 Willy Ochoa443c-8eb 699-4dbb-a [facility] [id number] a nd 015 [id number] [facility] 2019-09-10 2019-09-10 Emergency X BRITTNEE, [facility] ERT [id number] [facility] 11:02:18 13:03:00 KIERSTEN stuart [facility] 2019-08-29 2019-08-29 Outpatient SAVANNA Quezada [id number] [facility] 08:13:00 08:13:00 [facility] 2019-08-28 2019-08-28 Outpatient SAVANNA Quezada [id number] [facility] 14:20:00 14:20:00 [facility] 2019-08-28 2019-08-28 Establishe SAVANNA Quezada [id number] [facility] 14:20:00 14:20:00 d Patient Devaughn 10-443c-8eb ae0-4262 -8 Health Office [id number] a nd Visit-Leve 015 f9de20 Stephani garcia 2019-07-16 2019-07-16 Outpatient Lalita CHW CHW [id number] [place] 16:20:00 16:20:[address] [facility] Essence garcia 2019-07-16 2019-07-16 Establishe CHW [id number] [facility] 16:20:00 16:20:00 d Patient 10-443c-8eb dfe-4818 -b Health Office [id number] [id number] a nd Visit-Leve 015 [id number] Stephani garcia 2019-07-04 2019-07-04 Outpatient Dana CHW CHW [id number] [facility] 15:00:00 15:00:[address] [facility] Essence garcia 2019-07-04 2019-07-04 Outpatient DanaJANAEW [id number] 0d6 [id number] [facility] 15:00:00 15:00:00 Angel 10-443c-8eb 94a-468e-9 [place] [id number] h05-6xppwu a nd 015 lk431g Que garcia 2019-05-07 2019-05-07 Outpatient Chichi W CHW [id number] [facility] 15:00:00 15:00:00 [facility] 2019-05-07 2019-05-07 Establishe CHW [id number] [id number] [id number] [facility] 15:00:00 15:00:00 d Patient 10-443c-8eb t46-33m1 -9 Health Office [id number] [id number] a nd Visit-Leve 015 [id number] Stephani garcia 2018-11-02 2018-11-02 Outpatient Lazaro CHW CHW [id number] [place] 16:00:00 16:00:[address] [facility] Essence garcia 2018-11-02 2018-11-02 Establishe CHW [id number] b7f [id number]-5 [facility] 16:00:00 16:00:00 d Patient 10-443c-8eb a1n-58t2 -a Health Office [id number] r61-g98m0m a nd Visit-Leve 015 [id number] Stephani Duncan s 2013-02-14 2013-02-14 [facility] [id number] [id number] a1-2 [place] 08:40:00 08:40:00 Patient 10-443c-8eb 608-48fd-8 Health Office [id number] [id number] a nd Visit-Leve 015 f54d01 Stephani Duncan s 2010-12-15 2010-12-15 Outpatient [facility] [id number] Univers 00:00:00 09:45:00 [facility] 2010-12-11 2010-12-11 Emergency X SHERINE, [facility] ERT [id number] Univers 12:04:00 13:13:00 MICHAEL 8 [facility] 2010-11-21 2010-11-21 Emergency X NEMESIOICAN, [facility] ERT [id number] Univers 16:26:00 20:04:00 KRYSTIAN 9 [facility] 2010-10-09 2010-10-09 Emergency X AMBERLY KHAN [facility] ERT [id number] Univers 21:07:00 22:56:00 3 [facility] 2010-08-31 2010-08-31 Emergency X DESHAWN, [facility] ERT [id number] Univers 17:52:00 18:49:00 MEREDITH 2 [facility] 2010-08-02 2010-08-02 Outpatient [facility] [id number] Univers 00:00:00 15:22:00 6 [facility] 2010-07-30 2010-07-30 Outpatient [facility] [id number] Univers 00:00:00 14:30:00 2 [facility] 2010-07-16 2010-07-16 Outpatient [facility] [id number] Univers 00:00:00 09:48:00 5 y [facility] 2010-07-13 2010-07-13 Outpatient [facility] [id number] Univers 00:00:00 19:45:00 2 [facility] 2010-07-12 2010-07-12 Outpatient [facility] [id number] Univers 00:00:00 14:23:00 4 [facility] 2010-02-22 2010-02-22 Emergency X KAALE, [facility] ERT [id number] Univers 15:11:00 19:42:00 MOIRA 6 ity of [facility] 2010-01-06 2010-01-06 Emergency X ELVIRA, [facility] ERT [id number] Univers 13:32:00 14:44:00 GILDA 4 ity o f [facility] 2009-12-10 2009-12-11 Emergency X DARCI PETERSON [facility] ERT [id number] Univers 23:06:00 00:37:00 DARCI PETERSON 3 ity [facility] 2009-08-26 2009-08-26 Outpatient [facility] [id number] Univers 00:00:00 14:10:00 8 ity [facility] 2009-08-11 2009-08-11 Outpatient [facility] [id number] Univers 00:00:00 09:35:00 7 [facility] 2009-07-06 2009-07-06 Outpatient [facility] [id number] Univers 00:00:00 14:50:00 5 [facility] 2009-04-29 2009-04-30 Emergency X CERRI, [facility] ERT [id number] Univers 22:30:00 01:00:00 KELSEA 4 ity o [facility] 2009-02-06 2009-02-06 Outpatient [facility] [id number] Univers 00:00:00 16:26:00 7 [facility] 2009-01-20 2009-01-20 Outpatient [facility] [id number] Univers 00:00:00 22:41:00 9 [facility] 2008-01-04 2008-01-05 Emergency X DELEON, [facility] ERT [id number] Univers 22:05:00 01:46:00 JOAQUÍN 5 ity [facility] 2006-09-04 2006-09-04 Emergency X STONEDALE, [facility] ERT [id number] Univers 02:15:00 10:52:00 MARIA ALEJANDRA 9 ity o f [facility] 2006-01-03 2006-01-03 Outpatient [facility] [id number] Univers 00:00:00 12:59:00 4 [facility] 2005-10-12 2005-10-12 Outpatient [facility] [id number] Univers 00:00:00 16:52:00 6 ity [facility] 2005-09-01 2005-09-01 Outpatient [facility] [id number] Univers 00:00:00 13:25:00 4 [facility] 2005-08-31 2005-08-31 Outpatient [facility] [id number] Univers 00:00:00 08:45:00 2 [facility] 2005-08-21 2005-08-24 Inpatient X KERI [facility] PEY [id number] Univers 20:13:00 16:04:00 CHARLISE 1 ity o f [facility] 2005-07-16 2005-07-16 Emergency X NAIF SHAW [facility] ERT [id number] Univers 17:07:00 18:58:00 7 [facility] 2005-07-13 2005-07-13 Outpatient [facility] [id number] Univers 00:00:00 14:45:00 6 [facility] 2005-02-17 2005-02-17 Outpatient [facility] [id number] Univers 00:00:00 13:45:00 4 [facility] 2005-01-27 2005-01-27 Outpatient [facility] [id number] Univers 00:00:00 10:20:00 6 [facility] 2005-01-11 2005-01-11 Outpatient [facility] [id number] Univers 00:00:00 16:49:00 4 [facility] Results Test Description Test Time Test Comments Results Result Comments Source POCT TEST 2022-12-21 14:06:00 Test Item Value Reference Range Interpretation Comme nts POCT PREG (test code = 1605) Negative On board controls acceptable with C Line (test code = 3574) Yes POCT PREG LOT # (test code = 3575) POCT PREG TEST DATE (test code = 3576) Lab Interpretation (test code = 10501-1) [facility] 03:18:13 ALCOHOL<10mg/dL12/06/2022 10:18 PM CDTUT LABORATORY SERVICESToxic Greater than or equal to 80 mg/dL. NOTE: Whole blood values are approximately 10% to 15% lower than serum and plasma.[facility] [id number] 02:46:00 Test Item Value Reference Range Interpretation Comments POCT PREG (test code = 1605) Negative On board controls acceptable with Present C Line (test code = 3574) POCT PREG LOT # (test code = 3574) [id number] POCT PREG TEST DATE (test 2024-02-16 code = 3576) Lab Interpretation (test code = Normal 78335-8) [facility]. METABOLIC PANEL (49924)2022-12-04 03:18:58 Test Item Value Reference Range Interpretation Comments NA (test code = 143 mmol/L 135-145 2321394014) K (test code = 4.1 mmol/L 3.5-5.0 5920350945) CL (test code = 107 mmol/L 98-108 6801847169) CO2 TOTAL (test code 23 mmol/L 23-31 = 3765475553) AGAP (test code = 13 2-16 3373407586) BUN (test code = 11 mg/dL 7-23 4851187087) GLUCOSE (test code = 94 mg/dL 70-110 8325318514) CREATININE (test code 0.79 mg/dL 0.50-1.04 = 0352766987) TOTAL BILI (test code 0.5 mg/dL 0.1-1.1 = 7196038258) CALCIUM (test code = 8.9 mg/dL 8.6-10.6 5205851547) T PROTEIN (test code 7.5 g/dL 6.3-8.2 = 5333685987) ALBUMIN (test code = 4.6 g/dL 3.5-5.0 1847849646) ALK PHOS (test code = 83 U/L 34-122 8988999707) ALTv (test code = 21 U/L 5-35 1742-6) AST(SGOT) (test code 22 U/L 13-40 = 8885170909) eGFR (test code = 89.4 mL/min/1.73m2 3541018530) ANGELIKA (test code = ANGELIKA) Association of Glomerular Filtration Rate (GFR) and Staging of Kidney Disease* + + +- +| GFR (mL/min/1.73 m2) ?| With Kidney Damage ?| ?Without Kidney Damage+ ------+ ----+ ------+| ?>90 ?| ?Stage one ?| ? Normal ?+ -+ + -+| ?60-89 ?| ?Stage two ?| ? Decreased GFR ? + + +- +| ?30-59 ?| ?Stage three ?| ? Stage three ? + + +- +| ?15-29 ?| ?Stage four ? | ? Stage four ?+ -+ + -+| ?<15 (or dialysis) ? ?| ?Stage five ? | ? Stage five ?+ -+ + -+ *Each stage assumes the associated GFR level has been in effect for at least three months. ?Stages 1 to 5, with or without kidney disease, indicate chronic kidney disease. Notes: Determination of stages one and two (with eGFR >59mL/min/1.73 m2) requires estimation of kidney damage for at least three months as defined by structural or functional abnormalities of the kidney, manifested by either:Pathological abnormalities or Markers of kidney damage (including abnormalities in the composition of the blood or urine or abnormalities in imaging tests). [facility] 03:18:58 Test Item Value Reference Range Interpretation Comments ALCOHOL (test code = 121 mg/dL 3207992714) ANGELIKA (test code = Toxic Greater than or ANGELIKA) equal to 80 mg/dL. NOTE: Whole blood values are approximately 10% to 15% lower than serum and plasma. [facility] CenterCREATINE [id number] 03:18:58 Test Item Value Reference Range Interpretation Comments CK (test code = 3761452887) 169 U/L 33-194 Lab Interpretation (test code = Normal 45565-8) [facility] CenterPREG[facility]NCY TEST, [id number] 03:15:37 Test Item Value Reference Range Interpretation Comments PREG SERUM (test code Negative = 0446178969) ANGELIKA (test code = ANGELIKA) Less than 10 IU/L. ?If low titer or ectopic is suspected, resubmit specimen in 48-72 hours. [facility] CenterCB WITH [id number] 03:01:38 Test Item Value Reference Range Interpretation Comments WBC (test code = 13.44 See_Comment H [Automated 6690-2) message] The system which generated this result transmit willam reference range : 4.30 - 11.10 10*3/?L. The reference range was not used to interpret this result as normal/abnormal . RBC (test code = 5.30 See_Comment H [Automated 789-8) message] The system which generated this result transmit willam reference range : 3.93 - 5.25 10*6/?L. The reference range was not used to interpret this result as normal/abnormal . HGB (test code = 14.1 g/dL 11.6-15.0 718-7) HCT (test code = 43.6 % 35.7-45.2 4544-3) MCV (test code = 82.3 fL 80.6-95.5 787-2) MCH (test code = 26.6 pg 25.9-32.8 785-6) MCHC (test code = 32.3 g/dL 31.6-35.1 786-4) RDW-SD (test code = 44.8 fL 39.0-49.9 62264-3) RDW-CV (test code = 15.0 % 12.0-15.5 788-0) PLT (test code = 398 See_Comment H [Automated 777-3) message] The system which generated this result transmit willam reference range : 166 - 358 10*3/ ?L. The reference range was not u sed to interpret th is result as normal/abnormal . MPV (test code = 8.8 fL 9.5-12.9 L 83751-7) NRBC/100 WBC (test 0.0 See_Comment [Automat ed code = [id number]) message] The system which generated this result transmit willam reference range : 0.0 - 10.0 /100 WBCs. The reference range was not used to interpret this result as normal/abnormal . NRBC x10^3 (test code See_Comment [Auto mated = [id number]) message] The system which generated this result transmit willam reference range : 10*3/?L. The reference range was not used to interpret this result as normal/abnormal . GRAN MAT (NEUT) % 75.3 % (test code = 770-8) IMM GRAN % (test code 0.40 % = 8121136896) LYMPH % (test code = 16.8 % 736-9) MONO % (test code = 5.5 % 5905-5) EOS % (test code = 1.6 % 713-8) BASO % (test code = 0.4 % 706-2) GRAN MAT x10^3(ANC) 10.11 10*3/uL 1.88-7.09 H (test code = 3215981316) IMM GRAN x10^3 (test 0.06 10*3/uL 0.00-0.06 code = 0417559877) LYMPH x10^3 (test code 2.26 10*3/uL 1.32-3.29 = 731-0) MONO x10^3 (test code 0.74 10*3/uL 0.33-0.92 = 742-7) EOS x10^3 (test code = 0.22 10*3/uL 0.03-0.39 711-2) BASO x10^3 (test code 0.05 10*3/uL 0.01-0.07 = 704-7) Lab Interpretation Abnormal (test code = 38178-1) [facility] MOLECULAR [id number] 23:22:15 Test Item Value Reference Range Interpretation Comments POCT Molecular FluA (test code = Negative Negative 98204-2) POCT Molecular FluB (test code = Negative Negative 72776-7) Lab Interpretation (test code = Normal 45643-8) [facility] MOLECULAR [id number] 23:15:41 Test Item Value Reference Range Interpretation Comments POCT Molecular Strep (test code = Negative Negative 26455-4) Lab Interpretation (test code = Normal 67070-3) [facility] Description: Choriogonadotropin.intact+Beta subunit [Units/volume] in Serum or Plasma 2022-09-08 04:29:00 Test Item Value Reference Range Interpretation Comments hCG,Beta <1 Female (Non-pr egnant) 0 - Subunit,Qnt,Serum 5 (Postmen opausal) 0 - 8 . (test code = 51255-6) Female () Weeks of Gestation 3 6 - 71 4 10 - 750 5 217 - 71 38 6 158 - 09944 7 3697 -1 38632 8 45931 -935003 9 59267 -785568 10 4650 9 -814319 12 99636 -05939 2 14 30499 - 61451 15 29755 - 34881 16 9620 - 48701 17 5063 - 73371 18 9307 - 01164Roche ECLIA [facility] [id number] 12:57:51 Test Item Value Reference Interpretation Comments Range TROPONIN I (test 0.006 ng/mL See_Comment [Automated code = 3582082233) message] The system which generated this result transmitted reference range : <=0.034. The reference range was not used to interpret this result as normal/abnormal . ANGELIKA (test code = Reference (Normal) ANGELIKA) Range (defined by the 99th percentile reference limit): <= 0.034 ng/mL Note: Cardiac troponin begins to rise 3-4 hours after the onset of ischemia. Repeat in 4-6 hours if the sample was drawn within 3-4 hours of the onset of the symptom and found normal. Diagnosis of myocardial injury is made with acute changes in cTn concentrations with at least one serial sample above the 99th percentile upper reference limit (URL), taken together with the patient's clinical presentation. Biotin has been reported to cause a negative bias, interpret results relative to patient's use of biotin. Lab Interpretation Normal (test code = 61050-2) [id number] 12:57:51 Test Item Value Reference Range Interpretation Comments NT-proBNP (test code 31 pg/mL See_Comment [Autom ated = 0086955327) message] The system which generated this result transmitted reference range : <=125. The reference range was not used to interpret this result as normal/abnormal . ANGELIKA (test code = ANGELIKA) Biotin has been reported to cause a negative bias, interpret results relative to patient's use of biotin. Lab Interpretation Normal (test code = 68399-6) [id number] 12:54:24 Test Item Value Reference Interpretation Comments Range D-DIMER (test code = See_Comment [Autom ated 1066935307) message] The system which generated this result transmitted reference range : <0.50 ?g/mL (FEU). The reference range was not used to interpret this result as normal/abnormal . ANGELIKA (test code = This test may be ANGELIKA) used in conjunction with a clinical pretest probability (PTP) assessment model to exclude venous thromboembolism (VTE) in patients suspected of deep venous thrombosis (DVT) and pulmonary embolism (PE) A D-Dimer value less than 0.50 ?g/ml (FEU) has a negative predicative value of 96 to 100% (95% CI)and 97 to 100% (95% CI) as an aid in the diagnosis of deep vein thrombosis (DVT) and pulmonary embolism when there is low or moderate pretest probability of PE or DVT. D-Dimer values are expressed in initial fibrinogen equivalent units (FEU)" The assay results should be used with other information, including the clinical context, in forming a diagnosis. Lab Interpretation Normal (test code = 41002-1) [facility] WITH [id number] 12:39:30 Test Item Value Reference Range Interpretation Comments WBC (test code = See_Comment H [Automated 1089-2) message] The sy stem which generated this result transmitted reference range : 4.30 - 11.10 10*3/?L. The reference range was not used to interpret this result as normal/abnormal . RBC (test code = See_Comment [Automated 419-8) message] The sy stem which generated this result transmitted reference range : 3.93 - 5.25 10*6/?L. The reference range was not used to interpret this result as normal/abnormal . HGB (test code = 13.9 g/dL 11.6-15.0 718-7) HCT (test code = 42.2 % 35.7-45.2 4544-3) MCV (test code = 82.4 fL 80.6-95.5 787-2) MCH (test code = 27.1 pg 25.9-32.8 785-6) MCHC (test code = 32.9 g/dL 31.6-35.1 786-4) RDW-SD (test code = 40.2 fL 39.0-49.9 61218-8) RDW-CV (test code = 13.3 % 12.0-15.5 788-0) PLT (test code = See_Comment [Automated 077-3) message] The sy stem which generated this result transmitted reference range : 166 - 358 10*3/ ?L. The reference r steve was not used to interpret this result as normal/abnormal . MPV (test code = 9.0 fL 9.5-12.9 L 25257-2) NRBC/100 WBC (test See_Comment [Automat ed code = 9422950516) message] The system which generated this result transmitted reference range : 0.0 - 10.0 /100 WBCs. The refer ence range was not u sed to interpret th is result as normal/abnormal . NRBC x10^3 (test code See_Comment [Auto mated = 1862935837) message] The s ystem which generated this result transmitted reference range : 10*3/?L. The reference range was not used to interpret this result as normal/abnormal . GRAN MAT (NEUT) % 57.2 % (test code = 770-8) IMM GRAN % (test code 0.20 % = 2844541994) LYMPH % (test code = 31.0 % 736-9) MONO % (test code = 6.3 % 5905-5) EOS % (test code = 4.9 % 713-8) BASO % (test code = 0.4 % 706-2) GRAN MAT x10^3(ANC) 7.30 10*3/uL 1.88-7.09 H (test code = 9124945136) IMM GRAN x10^3 (test 0.03 10*3/uL 0.00-0.06 code = 1953610316) LYMPH x10^3 (test code 3.96 10*3/uL 1.32-3.29 H = 731-0) MONO x10^3 (test code 0.80 10*3/uL 0.33-0.92 = 742-7) EOS x10^3 (test code = 0.62 10*3/uL 0.03-0.39 H 711-2) BASO x10^3 (test code 0.05 10*3/uL 0.01-0.07 = 704-7) Lab Interpretation Abnormal (test code = 33392-8) [facility] Description: Choriogonadotropin.intact+Beta subunit [Units/volume] in Serum or Plasma 2022-06-18 04:19:00 Test Item Value Reference Range Interpretation Comments hCG,Beta <1 Female (Non-pr egnant) 0 - Subunit,Qnt,Serum 5 (Postmen opausal) 0 - 8 . (test code = 35153-5) Female () Weeks of Gestation 3 6 - 71 4 10 - 750 5 217 - 713 8 6 158 - 12345 7 3697 -1 80870 8 19563 -177599 9 03181 -795235 10 0198 8 -232677 12 21949 -082866 14 86802 - 53419 15 38447 - 47090 16 5529 - 04899 17 7856 - 96531 18 6202 - 66371Roche ECLIA [facility] [id number] 19:12:00 Test Item Value Reference Range Interpretation Comments POCT PREG (test code = 1605) Negative On board controls acceptable with C Yes Line (test code = 3574) POCT PREG LOT # (test code = 3575) POCT PREG TEST DATE (test code = 3576) Lab Interpretation (test code = Normal 17386-7) [facility] [id number] 19:12:00 Test Item Value Reference Range Interpretation Comments POCT PREG (test code = 1605) Negative On board controls acceptable with C Yes Line (test code = 3574) POCT PREG LOT # (test code = 3575) POCT PREG TEST DATE (test code = 3576) Lab Interpretation (test code = Normal 69330-3) [facility] [id number] 19:12:00 Test Item Value Reference Range Interpretation Comments POCT PREG (test code = 1605) Negative On board controls acceptable with C Yes Line (test code = 3574) POCT PREG LOT # (test code = 3575) POCT PREG TEST DATE (test code = 3576) Lab Interpretation (test code = Normal 66604-4) [facility] W/AUTO [id number] 15:31:00 Test Item Value Reference Range Interpretation Comments WHITE BLOOD CELL (test code = 11.9 K/mm3 4.5-11.0 H WBC) RED BLOOD CELL (test code = 4.89 M/mm3 3.80-5.20 N RBC) HEMOGLOBIN (test code = HGB) 13.5 gm/dL 12.0-16.0 N HEMATOCRIT (test code = HCT) 40.9 % 36.0-48.0 N MEAN CELL VOLUME (test code = 83.6 UM3 82.0-99.0 N MCV) MEAN CELL HGB (test code = MCH) 27.6 UUG 25.5-32.5 N MEAN CELL HGB CONCETRATION 33.0 gm/dL 29.0-35.5 N (test code = MCHC) RED CELL DISTRIBUTION WIDTH 13.1 % 11.5-15.0 N (test code = RDW) RED CELL DISTRIBUTION WIDTH SD 39.1 fL 34.8-50.2 N (test code = RDW-SD) PLATELET COUNT (test code = 336 K/mm3 150-400 N PLT) MEAN PLATELET VOLUME (test code 9.3 fl 7.4-10.4 N = MPV) NEUTROPHIL % (test code = NT%) 65.9 % 49.0-76.0 N IMMATURE GRANULOCYTE % (test 0.3 % 0.0-0.4 N code = IG%) LYMPHOCYTE % (test code = LY%) 23.8 % 23.0-38.0 N MONOCYTE % (test code = MO%) 5.8 % 1.0-10.0 N EOSINOPHIL % (test code = EO%) 3.9 % 1.0-5.0 N BASOPHIL % (test code = BA%) 0.3 % 0.0-1.0 N NUCLEATED RBC % (test code = 0.0 % 0.0-0.1 N NRBC%) NEUTROPHIL # (test code = NT#) 7.9 K/mm3 2.4-6.3 H IMMATURE GRANULOCYTE # (test 0.03 x10 3/uL 0.00-0.07 N code = IG#) LYMPHOCYTE # (test code = LY#) 2.8 K/mm3 1.2-4.0 N MONOCYTE # (test code = MO#) 0.7 K/mm3 0.0-0.6 H EOSINOPHIL # (test code = EO#) 0.5 K/MM3 0.0-0.7 N BASOPHIL # (test code = BA#) 0.0 K/mm3 0.0-0.2 N NUCLEATED RBC # (test code = 0.00 X10 3uL 0.00-0.01 N NRBC#) CBC W/AUTO [id number] 07:06:00 Test Item Value Reference Range Interpretation Comments WHITE BLOOD CELL (test code = WBC) 10.6 K/uL 3.5-11.0 N RED BLOOD CELL (test code = RBC) 5.37 M/uL 3.54-5.02 H HEMOGLOBIN (test code = HGB) 15.1 GM/DL 11.0-15.0 H HEMATOCRIT (test code = HCT) 43.7 % 37.0-47.0 N MEAN CELL VOLUME (test code = MCV) 81.4 fL 81.0-99.0 N MEAN CELL HGB (test code = MCH) 28.1 pg 27.0-31.0 N MEAN CELL HGB CONCETRATION (test 34.6 GM/DL 33.0-37.0 N code = MCHC) RED CELL DISTRIBUTION WIDTH CV 14.1 % 11.5-14.5 N (test code = RDW) PLATELET COUNT (test code = PLT) 319 K/mm3 150-400 N MEAN PLATELET VOLUME (test code = 9.2 FL 8.8-13.1 N MPV) NEUTROPHIL % (test code = NT%) 80.2 % 40.0-76.0 H LYMPHOCYTE % (test code = LY%) 10.6 % 15.0-40.0 L MIXED % (test code = MX%) 9.2 % 3.0-15.0 N NEUTROPHIL # (test code = NT#) 8.5 K/uL 1.8-7.6 H LYMPHOCYTE # (test code = LY#) 1.1 K/uL 1.0-3.8 N MIXED # (test code = MX#) 1.0 k/mm3 0.1-0.8 H BASIC METABOLIC [id number] 02:25:00 Test Item Value Reference Range Interpretation Comments SODIUM (test code = NA/ABG) 139 MEQ/L 134-147 N POTASSIUM (test code = K/ABG) 3.4 MEQ/L 3.4-5.0 N CHLORIDE (test code = CL/ABG) 103 MEQ/L 100-108 N CREATININE ABG (test code = 0.9 mg/dL 0.6-1.0 N CREAABG) POC IONIZED CALCIUM (test code = 1.09 MMOL/L 1.12-1.32 L POCCA) POC GLUCOSE (test code = POCGLU) 102 MG/DL - XR CHEST 1 [id number] 00:00:[address] [facility] 2000 Sex: F FAX: Maggie Loredo MD [phone] [place]: St: REG Name: HUGH FOX [place] : 2000 Age/S: 20/F Unit #: [id number] Loc: [place] Phys: Maggie Feldman MD Acct: [id number] Dis Date: Status: REG ER PHONE #: Exam Date: 09/09/2021 0248 FAX #: Reason: acute cough fever EXAMS: CPT CODE: [id number] XR CHEST 1 V 69050 PROCEDURE INFORMATION: Exam: XR Chest Exam date and time: 09/09/2021 2:19 AM Age: 20years old Clinical indication: Cough; Additional info: Acute cough fever TECHNIQUE: Imaging protocol: XR of the chest. Views: 1 view. COMPARISON: No relevant prior studies available. FINDINGS: Lungs: Lung volumes are maintained. There are no infiltrates. Pleural spaces: Unremarkable. No pleural effusion. No pneumothorax. Heart/Mediastinum: The cardiac silhouette is normal in caliber. The aorta is unremarkable. Bones/joints: Unremarkable. IMPRESSION: No acute cardiopulmonary findings. at 0410 Reported and signed by: Zofia Guo M.D CC: aMggie Feldman MD Technologist: Alejandrina Nelson RT(R)(CT) Trnscrd Date/Time/By: 09/09/2021 (0410) : By: [email or web address] Orig Print D/T: S: 09/09/2021 (0410) PAGE 1 Signed Report
[2023-01-17] MEDS ORDERED: KETOROLAC 30 MG/ML INJ ONE (10:18)
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
--- NOTE | 2023-01-17 11:31 | RAD REPORT ---
EXAM DESCRIPTION: RAD - Shoulder Right 2 View - 01/17/2023 11:21 am CLINICAL HISTORY: Right shoulder pain FINDINGS: No fracture or dislocation is seen. No bone or joint abnormality noted
[2023-01-17 12:05] VITALS: TEMP 98.6; O2SAT 96
== END 2023-01-17 11:47 | disposition home or self-care (01) ==
LOC: ER 09:54
DX: S46.001A Unspecified injury of muscle(s) and tendon(s) of the rotator cuff of right shoulder, initial encounter (principal); F17.210 Nicotine dependence, cigarettes, uncomplicated; F32.A Depression, unspecified
CPT/HCPCS: 96372; 99284